=== PATIENT | female | born 1945 | race Caucasian/White ===

== ENCOUNTER 2016-10-24 13:03 | Outpatient (CLI) | payer MEDICARE, OTHER | END 2016-10-24 13:04 | disposition home or self-care (01) | DX: I26.99 Other pulmonary embolism without acute cor pulmonale (principal) ==

== ENCOUNTER 2016-11-21 09:41 | Outpatient (CLI) | payer MEDICARE, OTHER | END 2016-11-21 09:42 | disposition home or self-care (01) | DX: I26.99 Other pulmonary embolism without acute cor pulmonale (principal) ==

== ENCOUNTER 2017-01-17 10:37 | Outpatient (CLI) | payer MEDICARE, OTHER | END 2017-01-17 10:38 | disposition home or self-care (01) | DX: I26.99 Other pulmonary embolism without acute cor pulmonale (principal) ==

== ENCOUNTER 2017-02-14 08:00 | Outpatient (CLI) | payer MEDICARE, OTHER | END 2017-02-14 08:01 | disposition home or self-care (01) | DX: I26.99 Other pulmonary embolism without acute cor pulmonale (principal) ==

== ENCOUNTER 2017-03-14 13:48 | Outpatient (CLI) | payer MEDICARE, OTHER | END 2017-03-14 13:49 | disposition home or self-care (01) | LOC: LAB.F 13:48 | PROVIDERS: ATTEND Internal Medicine | DX: I26.99 Other pulmonary embolism without acute cor pulmonale (principal) | CPT/HCPCS: 85610 ==

== ENCOUNTER 2017-04-17 09:50 | Outpatient (CLI) | payer MEDICARE, OTHER | END 2017-04-17 09:51 | disposition home or self-care (01) | LOC: LAB.F 09:50 | PROVIDERS: ATTEND Internal Medicine | DX: I26.99 Other pulmonary embolism without acute cor pulmonale (principal) | CPT/HCPCS: 85610 ==

== ENCOUNTER 2017-05-16 12:44 | Outpatient (CLI) | payer MEDICARE, OTHER | END 2017-05-16 12:45 | disposition home or self-care (01) | LOC: LAB.F 12:44 | PROVIDERS: ATTEND Internal Medicine | DX: I26.99 Other pulmonary embolism without acute cor pulmonale (principal) | CPT/HCPCS: 85610 ==

== ENCOUNTER 2017-06-13 13:44 | Outpatient (CLI) | payer MEDICARE, OTHER | END 2017-06-13 13:45 | disposition home or self-care (01) | LOC: LAB.F 13:44 | PROVIDERS: ATTEND Internal Medicine | DX: I26.99 Other pulmonary embolism without acute cor pulmonale (principal) | CPT/HCPCS: 85610 ==

== ENCOUNTER 2017-07-11 13:33 | Outpatient (CLI) | payer MEDICARE, OTHER | END 2017-07-11 13:34 | disposition home or self-care (01) | LOC: LAB.F 13:33 | PROVIDERS: ATTEND Internal Medicine | DX: K50.10 Crohn's disease of large intestine without complications (principal); R19.7 Diarrhea, unspecified; I26.99 Other pulmonary embolism without acute cor pulmonale | CPT/HCPCS: 85610 ==

== ENCOUNTER 2017-07-19 08:00 | Outpatient (CLI) | payer MEDICARE, OTHER | END 2017-07-19 08:01 | LOC: LAB.R 08:00 | PROVIDERS: ATTEND Internal Medicine Gastroenterology | DX: K50.10 Crohn's disease of large intestine without complications (principal); R19.7 Diarrhea, unspecified | CPT/HCPCS: 83630; 83993; 87045; 87046; 87177; 87209; 87493 ==

== ENCOUNTER 2017-10-24 14:13 | Outpatient (CLI) | payer MEDICARE, OTHER | END 2017-10-24 14:14 | disposition home or self-care (01) | LOC: LAB.F 14:13 | PROVIDERS: ATTEND Internal Medicine | DX: I26.99 Other pulmonary embolism without acute cor pulmonale (principal) | CPT/HCPCS: 85610 ==

== ENCOUNTER 2017-11-27 13:26 | Outpatient (CLI) | payer MEDICARE, OTHER | END 2017-11-27 13:27 | disposition home or self-care (01) | LOC: LAB.F 13:26 | PROVIDERS: ATTEND Internal Medicine | DX: I26.99 Other pulmonary embolism without acute cor pulmonale (principal) | CPT/HCPCS: 85610 ==

== ENCOUNTER 2017-12-28 15:55 | Outpatient (CLI) | payer MEDICARE, OTHER | END 2017-12-28 15:56 | disposition home or self-care (01) | LOC: LAB.F 15:55 | PROVIDERS: ATTEND Internal Medicine | DX: I26.99 Other pulmonary embolism without acute cor pulmonale (principal) | CPT/HCPCS: 85610 ==

== ENCOUNTER 2018-01-28 11:19 | Outpatient (CLI) | payer MEDICARE, OTHER | END 2018-01-28 11:20 | disposition home or self-care (01) | LOC: LAB.F 11:19 | PROVIDERS: ATTEND Internal Medicine | DX: I26.99 Other pulmonary embolism without acute cor pulmonale (principal) | CPT/HCPCS: 85610 ==

== ENCOUNTER 2018-02-12 12:09 | Outpatient (CLI) | payer MEDICARE, OTHER | END 2018-02-12 12:10 | disposition critical access hospital (66) | LOC: EMS 12:09 | PROVIDERS: ATTEND Surgery | DX: R42 Dizziness and giddiness (principal); M54.9 Dorsalgia, unspecified; R10.9 Unspecified abdominal pain; R53.1 Weakness | CPT/HCPCS: A0425; A0427 ==

== ENCOUNTER 2018-02-12 12:41 | Inpatient (IN) | payer MEDICARE, OTHER ==
[2018-02-12] MEDS ORDERED: SODIUM CHLORIDE 0.9% 2,000 ML IV ONE (13:01)
[2018-02-12] MEDS ORDERED: ONDANSETRON 4 MG/2 ML VIAL IVP STA (13:01)
--- NOTE | 2018-02-12 13:06 | ED Physician Documentation ---
History of Present Illness - Stated complaint Stated Complaint: DIZZY - Chief complaint Chief Complaint: Abd Pain - Additonal information Additional information: hx from pt 72 female pmhx CAD CHF s/p raven and stents developed severe abd pain radiating to her back last night at 11 PM subj fever very weak and felt faint with standing did not fall no CP no SOA no cough no NVD no new meds etc arrives hypotensive Review of Systems Constitutional: reports: Fever (subj) Throat: denies: Sore throat Cardiac: denies: Chest pain / pressure Respiratory: denies: Dyspnea, Cough GI: reports: Abdominal Pain. denies: Nausea, Vomiting, Diarrhea : denies: Dysuria Musculoskeletal: reports: Back pain Neurologic: reports: Generalized weakness, Near syncope Endocrine: reports: Easy bruising / bleeding (coumadin) Immunocompromised: denies: Immunocompromised PD PAST MEDICAL HISTORY - Past Medical History Cardiovascular: Hypertension, High cholesterol, Pulmonary embolism Respiratory: Sleep apnea, CPAP use GI: Crohn's disease Psych: Anxiety - Past Surgical History Past Surgical History: Yes General: Cholecystectomy Cardiovascular: Coronary stent - Present Medications Home Medications: Ambulatory Orders Medication Instructions Recorded Confirmed Aspirin [Aspir 81] 81 mg PO DAILY 04/02/15 02/12/18 Atorvastatin Calcium [Lipitor] 80 mg PO DAILY 04/02/15 02/12/18 Paroxetine HCl [Paxil] 30 mg PO DAILY 04/02/15 02/12/18 Temazepam [Restoril] 15 - 30 mg PO HS PRN 04/02/15 02/12/18 Triamterene/Hydrochlorothiazid 1 tab PO DAILY 04/02/15 02/12/18 [Triamterene-Hctz 37.5-25 mg Cp] Warfarin Sodium [Coumadin] 4 - 6 mg PO DAILY 04/02/15 02/12/18 Furosemide [Furosemide] 40 mg PO Q48H 02/12/18 02/12/18 Melatonin 15 mg PO QPM 02/12/18 02/12/18 Metoprolol Succinate [Toprol Xl] 50 mg PO DAILY 02/12/18 02/12/18 Nitroglycerin [Nitrostat] 0.4 mg SL Q5MIN PRN 02/12/18 02/12/18 Nystatin/Triamcin 1 applic TOP DAILY PRN 02/12/18 02/12/18 [Nystatin-Triamcinolone Cream] Potassium Chloride 20 meq PO DAILY 02/12/18 02/12/18 Ropinirole HCl [Ropinirole HCl] 1 mg PO QPM 02/12/18 02/12/18 - Allergies Allergies/Adverse Reactions: Allergies Allergy/AdvReac Type Severity Reaction Status Date / Time adhesive Allergy Unknown Verified 04/02/15 09:17 Sulfa (Sulfonamide Allergy Rash Verified 04/02/15 09:17 Antibiotics) tetracycline Allergy Unknown Verified 04/02/15 09:17 - Social History Does the pt smoke?: No Smoking Status: Never smoker PD ED PE NORMAL - Vitals Vital signs reviewed: Yes - Neck Neck: Supple, no meningeal sign - Cardiac Cardiac: RRR - Respiratory Respiratory: No respiratory distress, Clear bilaterally - Abdomen Abdomen: Soft, Non tender, Other (no pulsatile mass appreciated but BMI is 44) - Derm Derm: Normal color - Extremities Extremities: No edema, No calf tenderness / cord, Other (+ pulses) - Neuro Neuro: Alert and oriented X 3 Results - Vitals Vitals: Vital Signs - 24 hr 02/12/18 02/12/18 02/12/18 12:47 13:40 14:06 Temperature 36.8 C Heart Rate 83 77 93 Respiratory 14 29 H 34 H Rate Blood Pressure 76/35 L 62/57 L 84/41 L O2 Saturation 100 92 94 02/12/18 02/12/18 02/12/18 14:17 14:28 14:36 Temperature Heart Rate 89 83 86 Respiratory 22 33 H 29 H Rate Blood Pressure 74/51 L 72/31 L 104/51 L O2 Saturation 96 100 97 02/12/18 02/12/18 02/12/18 15:07 15:17 15:25 Temperature 37.8 C H Heart Rate 86 86 86 Respiratory 26 H 27 H 22 Rate Blood Pressure 100/37 L 119/50 L 127/50 L O2 Saturation 95 95 96 Oxygen O2 Source Nasal cannula - EKG (time done) 1246 Rate: Rate (enter#) Rhythm: NSR Ischemia: Q waves (inf), Non specific changes (flat T waves diffusely) - Labs Labs: Laboratory Tests 02/12/18 02/12/18 02/12/18 13:00 13:03 13:03 WBC 22.3 H RBC 4.12 L Hgb 13.2 Hct 39.9 MCV 96.9 MCH 32.1 H MCHC 33.1 RDW 14.0 Plt Count 236 MPV 8.8 Neut # 19.8 H Lymph # 1.2 L Aurora # 1.2 H Eos # 0.0 Baso # 0.1 Absolute Nucleated RBC 0.00 Nucleated RBC % 0.0 Manual Slide Review Indicated RBC Morph Micro Appear 2+ ANISOCYTOSIS PT 34.0 H INR 3.1 H APTT 33.6 H Sodium 137 Potassium 2.9 L Chloride 99 L Carbon Dioxide 26 Anion Gap 12.0 BUN 29 H Creatinine 1.4 H Estimated GFR (MDRD) 37 L Glucose 97 Lactic Acid Calcium 8.8 Total Bilirubin 2.5 H AST 33 ALT 22 Alkaline Phosphatase 74 Troponin I Total Protein 7.1 Albumin 3.8 Globulin 3.3 Albumin/Globulin Ratio 1.2 Lipase 23 Urine Color Urine Clarity Urine pH Ur Specific Ramer Urine Protein Urine Glucose (UA) Urine Ketones Urine Occult Blood Urine Nitrite Urine Bilirubin Urine Urobilinogen Ur Leukocyte Esterase Urine RBC Urine WBC Ur Squamous Epith Cells Urine Bacteria Urine Casts Ur Microscopic Review Urine Culture Comments 02/12/18 02/12/18 02/12/18 13:03 14:30 15:00 WBC RBC Hgb Hct MCV MCH MCHC RDW Plt Count MPV Neut # Lymph # Aurora # Eos # Baso # Absolute Nucleated RBC Nucleated RBC % Manual Slide Review RBC Morph Micro Appear PT INR APTT Sodium Potassium Chloride Carbon Dioxide Anion Gap BUN Creatinine Estimated GFR (MDRD) Glucose Lactic Acid 2.7 H Calcium Total Bilirubin AST ALT Alkaline Phosphatase Troponin I < 0.04 Total Protein Albumin Globulin Albumin/Globulin Ratio Lipase Urine Color YELLOW Urine Clarity CLEAR Urine pH 6.0 Ur Specific Ramer <=1.005 Urine Protein TRACE Urine Glucose (UA) NEGATIVE Urine Ketones NEGATIVE Urine Occult Blood MODERATE H Urine Nitrite NEGATIVE Urine Bilirubin NEGATIVE Urine Urobilinogen 0.2 (NORMAL) Ur Leukocyte Esterase NEGATIVE Urine RBC 6-10 H Urine WBC 0-3 Ur Squamous Epith Cells RARE Squamous Urine Bacteria Rare Urine Casts 3-5 Hyaline Casts Ur Microscopic Review INDICATED Urine Culture Comments NOT INDICATED - Rads (name of study) CXR 1 Radiology: See rad report (R IJ deep, no pneumo) CXR 2 Radiology: See rad report (R IJ in lower SVC, no pneumo) CTA cest abd pelvis Radiology: See rad report (diffuse vascualr sx with narrowing or numerous artieries but no bernadette ischemia, no AAA, no dissection, no appy, nl solid organs - per d/w and written rad report) PD MEDICAL DECISION MAKING - ED course ED course: bedside sono unable to visualize aorta CTA chest abnd pelvis show no cause for pain and hypotension suspect sepsis - elev WBC and lactate sx since last night - EKG non specific and trop neg given 2 L NS and empiric zosyn flagyl to cover abd pathogens continued low BP R IJ placed by anesthesia and norepi started with improved BP K repleted source remains unclear - no surgical issue identified on CTs - spoke to hospitalist Dr Castillo who will admit to ICU Departure - Departure Disposition: 66 [facility] DC/Xfer Clinical Impression: Hypokalemia Sepsis Qualifiers: Sepsis type: sepsis due to unspecified organism Qualified Code(s): A41.9 - Sepsis, unspecified organism Abdominal pain Qualifiers: Abdominal location: unspecified location Qualified Code(s): R10.9 - Unspecified abdominal pain Back pain Qualifiers: Back pain location: low back pain Chronicity: acute Back pain laterality: unspecified Sciatica presence: without sciatica Qualified Code(s): M54.5 - Low back pain Condition: Serious Discharge Date/Time: 02/12/18 16:25
[2018-02-12] MEDS ORDERED: IOPAMIDOL-300 100 ML VIAL ONE (13:13)
[2018-02-12 13:20] LABS: BASOPHILS # (AUTO) 0.1 10^3/uL (0.0-0.1); BASOPHILS % (AUTO) 0.4 %; HGB - HEMOGLOBIN 13.2 g/dL (12.0-16.0); LYMPHOCYTES # (AUTO) 1.2 10^3/uL (1.5-3.5); LYMPHOCYTES % (AUTO) 5.3 %; MEAN CORPUSCULAR HEMOGLOBIN 32.1 pg (27.0-31.0); MEAN CORPUSCULAR HGB CONC 33.1 g/dL (32.0-36.0); MEAN CORPUSCULAR VOLUME 96.9 fL (81.0-99.0); MEAN PLATELET VOLUME 8.8 fL (7.9-10.8); MONOCYTES # (AUTO) 1.2 10^3/uL (0.0-1.0); MONOCYTES % (AUTO) 5.5 %; NEUTROPHILS # (AUTO) 19.8 10^3/uL (1.5-6.6); NEUTROPHILS % (AUTO) 88.8 %; PLT - PLATELET COUNT 236 10^3/uL (130-450); RED BLOOD COUNT 4.12 10^6/uL (4.20-5.40); WHITE BLOOD COUNT 22.3 x10^3/uL (4.8-10.8)
[2018-02-12 13:28] LABS: INR 3.1 (0.8-1.2)
[2018-02-12 13:31] LABS: ALBUMIN 3.8 g/dL (3.2-5.5); ALBUMIN/GLOBULIN RATIO 1.2 (1.0-2.2); BILIRUBIN,TOTAL 2.5 mg/dL (0.2-1.0); CALCIUM 8.8 mg/dL (8.5-10.3); CREATININE 1.4 mg/dL (0.4-1.0); TOTAL PROTEIN 7.1 g/dL (6.7-8.2)
[2018-02-12] MEDS: MORPHINE 2 MG/ML SYRINGE IVP STA ×2 (13:36→14:01)
[2018-02-12] MEDS ORDERED: PIPERACILLIN/TAZOBACTAM 3.375 GM in SODIUM CHLORIDE 0.9% MINIBAG 100 ML IV STA (13:41)
[2018-02-12] MEDS ORDERED: metroNIDAZOLE 500 MG/100 ML 500 MG/100 ML BAG IV ONE (13:42)
--- NOTE | 2018-02-12 14:06 | CT Preliminary Report ---
Exam: CT CHEST ANGIO (AORTA) IMPRESSION: 1. Mild cardiomegaly. 2. Greater than 50% diameter narrowing origins of left subclavian and celiac arteries. 3. Otherwise, unremarkable exam. [facility] SITE ID: [id number]
[2018-02-12 14:09] LABS: RBC MORPHOLOGY (MULTIPLE) 2+ ANISOCYTOSIS (NORMAL)
--- NOTE | 2018-02-12 14:16 | CT Report ---
EXAM: CT ANGIOGRAM CHEST, ABDOMEN AND PELVIS EXAM DATE: 02/12/2018 01:30 PM. CLINICAL HISTORY: Chest pain radiating to the back. Hypotension. COMPARISONS: None. TECHNIQUE: Routine axial helical CT angiographic imaging was performed through the chest, abdomen, and pelvis. I V Contrast: ISOVUE 300,100 mL. Reconstructions: Coronal, sagittal, and 3D MIP reconstructions of the aorta. In accordance with CT protocol optimization, one or more of the following dose reduction techniques w ere utilized for this exam: automated exposure control, adjustment of mA and/or KV based on patient s ize, or use of iterative reconstructive technique. FINDINGS: Vascular Structures: 30% narrowing origin brachiocephalic artery. 70% diameter narrowing origin left subclavian artery. 90% diameter narrowing origin celiac artery. 40% diameter narrowing origin superior mesenteric artery. No aneurysm, dissection, nor other significant atherosclerotic disease of the thoracic aorta, abdomin al aorta, or iliac arteries. The visualized pulmonary, mesenteric, and solid organ vascular structure s are also within normal limits. Grossly, no pulmonary emboli. Lungs/Pleura: No consolidation, nodules, or edema. No effusions or pneumothorax. Mediastinum: Mild cardiomegaly. No significant adenopathy. Abdominal Organs: Cholecystectomy. No biliary duct dilatation. Fatty liver. The spleen, pancreas, adrenal glands, and kidneys are normal in size and demonstrate no masses or abnormal enhancement. Peritoneal Cavity: Normal. No free fluid, free air, or acute inflammatory process. Appendix not visualized but no inflammatory changes adjacent to the cecum. Pelvic Organs: Normal. The bladder and visualized pelvic organs are within normal limits. Bones: Old [id number] wedging throughout the kyphotic thoracic spine with multilevel degenerati ve disk disease. Extensive diffuse idiopathic skeletal hyperostosis thoracic spine as well. No acute trabecular or cortical disruption. No significant abnormality. Other: None. IMPRESSION: 1. Mild cardiomegaly. 2. Greater than 50% diameter narrowing origins of left subclavian and celiac arteries. 3. Otherwise, unremarkable exam. [facility] Referring Provider Line: [phone] SITE ID: [id number]
--- NOTE | 2018-02-12 14:30 | CT Preliminary Report ---
Exam: CT ABDOMEN/PELVIS ANGIO Please see combined report. SITE ID: [id number]
--- NOTE | 2018-02-12 15:10 | XRAY Report ---
EXAM: CHEST RADIOGRAPHY EXAM DATE: 02/12/2018 02:53 PM. CLINICAL HISTORY: Line placement. COMPARISON: 04/02/2015. TECHNIQUE: 1 view. FINDINGS: Lungs/Pleura: Diffuse and subtle prominence. No consolidation, effusion, or pneumothorax. Mediastinum: Mild cardiomegaly. Diffuse vascular fullness. Supine patient. Other: Right central line tip in atrium or IVC about 8.4 cm below level of marco a. IMPRESSION: Right central line tip in atrium or IVC. [facility] Referring Provider Line: [phone] SITE ID: [id number]
--- NOTE | 2018-02-12 15:11 | XRAY Report ---
EXAM: CHEST RADIOGRAPHY EXAM DATE: 02/12/2018 02:57 PM. CLINICAL HISTORY: Line placement. COMPARISON: An earlier study of this same date. TECHNIQUE: 1 view. FINDINGS: Lungs/Pleura: Diffuse interstitial prominence. No localized infiltrate, consolidation, effusion, or p neumothorax. Mediastinum: Mild to moderate cardiomegaly, probably unchanged. Diffuse vascular fullness. Supine pat ient. Other: Right central line has been pulled back and its tip is in the lower SVC about 2.1 cm below lev el of marco a. IMPRESSION: Central line tip in lower SVC. [facility] Referring Provider Line: [phone] SITE ID: [id number]
[2018-02-12] MEDS ORDERED: IOPAMIDOL-300 100 ML VIAL IVP ONE (15:16)
[2018-02-12 15:23] LABS: BILIRUBIN,URINE NEGATIVE (NEGATIVE); GLUCOSE, URINE (UA) NEGATIVE (NEGATIVE); KETONES,URINE (UA) NEGATIVE (NEGATIVE); LEUKOCYTE ESTERASE, URINE NEGATIVE (NEGATIVE); NITRITE,URINE NEGATIVE (NEGATIVE); OCCULT BLOOD,URINE MODERATE (NEGATIVE); PROTEIN,URINE TRACE mg/dL (NEGATIVE); UROBILINOGEN,URINE 0.2 (NORMAL) E.U./dL (NORMAL)
[2018-02-12 15:24] LABS: CLARITY,URINE CLEAR (CLEAR)
[2018-02-12 15:36] LABS: BACTERIA,URINE Rare /HPF (None Seen); CASTS, URINE 3-5 Hyaline Casts /LPF; SQUAMOUS EPITHELIAL CELL,UR RARE Squamous (<= Few)
[2018-02-12] MEDS ORDERED: oxyCODONE 5 MG TABLET PO PRN (15:42)
[2018-02-12] MEDS ORDERED: ONDANSETRON ODT 4 MG TABLET TL PRN (15:42)
[2018-02-12] MEDS ORDERED: ONDANSETRON 4 MG/2 ML VIAL IVP PRN (15:42)
[2018-02-12] MEDS ORDERED: MORPHINE 2 MG/ML SYRINGE IVP PRN (15:42)
[2018-02-12] MEDS ORDERED: POTASSIUM CHLOR 20 MEQ/100 ML 20 MEQ/100 ML BAG IV ONE (16:11)
[2018-02-12] MEDS: SODIUM CHLORIDE 0.9% 1,000 ML IV SCH (16:44)
[2018-02-12] MEDS: POTASSIUM CHLOR 20 MEQ/100 ML 20 MEQ/100 ML BAG IV SCH ×4 (17:03→19:59)
[2018-02-12] MEDS: SODIUM CHLORIDE FLUSH 0.9% 10 ML SYRINGE IVP SCH (17:04)
[2018-02-12] MEDS: ACETAMINOPHEN 325 MG TABLET PO PRN (17:54)
[2018-02-12] MEDS: PANTOPRAZOLE 40 MG VIAL IVP SCH (18:05)
[2018-02-12] MEDS: SODIUM CHLORIDE FLUSH 0.9% 10 ML SYRINGE IVP PRN ×3 (18:07→22:15)
[2018-02-12] MEDS: PIPERACILLIN/TAZOBACTAM 3.375 GM in SODIUM CHLORIDE 0.9% MINIBAG 100 ML IV SCH (20:29)
[2018-02-12] MEDS: rOPINIRole 1 MG TABLET PO SCH (20:29)
[2018-02-12] MEDS: metroNIDAZOLE 500 MG/100 ML 500 MG/100 ML BAG IV SCH (21:27)
[2018-02-12] MEDS: TEMAZEPAM 15 MG CAPSULE PO PRN (21:52)
[2018-02-12] MEDS ORDERED: ATORVASTATIN 40 MG TABLET ONE (21:55)
[2018-02-13] MEDS: ACETAMINOPHEN 325 MG TABLET PO PRN ×2 (02:55→07:29)
[2018-02-13] MEDS: SODIUM CHLORIDE FLUSH 0.9% 10 ML SYRINGE IVP SCH ×4 (02:55→23:00)
--- NOTE | 2018-02-13 02:57 | HISTORY & PHYSICAL EXAMINATION ---
DATE OF SERVICE: 02/12/2018 Physician: Naye Castillo MD PRIMARY CARE PROVIDER: Dr Kody Garcia, [facility]. ARTIST WOODBLOCK: Milton Mancuso MD, [facility]. ADMITTING PROVIDER: Naye Castillo MD. CHIEF COMPLAINT: Abrupt onset waxing and waning agonizing mid abdominal pain for a few hours. HISTORY OF PRESENT ILLNESS: Ms. Miranda is a morbidly obese 72-year-old female who has complications of heart disease, obstructive sleep apnea, and quiescent Crohn's colitis. She is seen regularly by all of her providers and is up to date with her exams. She describes herself as independent in that she is still able to drive, pay bills, clean her house, walk her dogs, etc. Her has difficulty getting around because of his illnesses and she considers herself his care provider. She was staying at a friend's house last night dog sitting. She had gone to bed after eating dinner around 6 o'clock in the evening. Bedtime is around 11:30 p.m. After lying down, she was overcome by a sudden onset of severe agonizing colicky abdominal pain that was diffuse, but located mainly in the mid abdomen. It radiated through to her back. She said she has never had anything like that and it was agonizingly painful. She says that she even felt like she was losing her mind with it and was not thinking very clearly. She tried to speak to her about it. The house she stays at has a terrible land line, and she also cannot get cellphone service. After speaking to her , he told her to call 911. She collapsed back in bed, and for some reason just could not bring herself to call 911. She knew she needed to do it, but just could not make herself get out of bed to make it happen. She denied fever or chills. She had no antecedent nausea. No antecedent illness. She did have incontinence of loose stool in the bed of a small amount. She denies urgency, frequency, dysuria. She denies chest pain, palpitations, shortness of breath. What she does have accompanying this is a massive headache. The same thing that she was getting in her mid abdomen is starting to happen in her head later on in the morning and this afternoon. Her called 911 and she was brought to our emergency room. She was hypotensive, afebrile. Blood pressure was down to 62/57 in the emergency room. Heart rate was in the 70s-90s and she was oxygenating well. The abdomen was nontender and there was no pulsatile mass, but her BMI was 44. Dr. Danielle was concerned about an aneurysm and asked that she have a CT angiogram of the chest and abdomen. While she does have 50% stenosis to some of her greater vessels, there is no ischemic colitis, rupture of the aorta. She does have a low potassium of 2.9 with a lactic acid of 2.7 and a total bilirubin of 2.5. Troponin is less than 0.04. White cell count is elevated at 22,000. Resuscitation in the emergency room consisted of a central line being placed with IV fluids of 0.9 normal saline, Zosyn and Flagyl for empiric abdominal catastrophe, and morphine for pain. She was also started on Levophed. With Levophed, the blood pressure has come up to 100/[address] Danielle. She has been transferred to the ICU and blood pressure is now 125/ 47. The history is lucid. Patient is still quite awake, alert and able to provide all the information above. PAST MEDICAL HISTORY 1. Coronary artery disease with two stents. 2. Ischemic cardiomyopathy with reduced ejection fraction and a diagnosis of "congestive heart failure," but the patient is unable to tell me if it is systolic or diastolic and what the ejection fraction is. 3. Hypertension. 4. Obstructive sleep apnea on CPAP at home with restless leg syndrome. 5. Depression with anxiety. 6. Morbid obesity. 7. Osteoarthritis with bilateral knee replacements. 8. G1, P1. 9. History of both cataracts removed with intraocular lens implant. 10. High cholesterol. 11. Pulmonary embolism. 12. Quiescent Crohn's disease. She is seen by her industrial boilermaker regularly and has not had to have treatment in quite some time. She does recall having a history of a duodenal Crohn's ulcer. ALLERGIES 1. SHE IS ALLERGIC TO ADHESIVE TAPE. 2. SULFA. 3. TETRACYCLINE. MEDICATIONS 1. Aspirin 81 mg daily. 2. Lipitor 80 mg daily. 3. Paxil 30 mg daily. 4. Restoril 15-30 mg p.o. at bedtime p.r.n. 5. Triamterene with hydrochlorothiazide 37.5/25 mg daily. 6. Coumadin 4 mg on even days, 6 mg on odd days. 7. Lasix 40 mg every 48 hours. With her new diagnosis of congestive heart failure, she only takes it three to four times a week. 8. Melatonin 15 mg q.p.m. 9. Metoprolol XL 50 mg daily. 10. Sublingual nitroglycerin p.r.n. 11. Nystatin applied to Yesenia of skin daily p.r.n. 12. Potassium 20 mEq daily. 13. Ropinirole 1 mg p.o. q.p.m. SOCIAL HISTORY: She was born in [place], [place]. From there, she met and her . She is a computer support specialist. They moved to [place], [place] to [place], then [place]. Somewhere in the , her mother and [id number] moved to the [place] and they began visiting them here. When it was time to retire for her as a computer support specialist and for her into computer sales, they settled on the [place] about 30 years ago. She never smoked. She rarely drinks. Again, she is completely independent with activities of daily living. CODE STATUS: DO NOT RESUSCITATE. She says that she does have advanced directives at home, but did not bring them with her. Description of her advanced directives is in general related to survivability. She would like all things done including surgeries, ICU, intubation, if it is a treatable medical problem. If after all of our efforts to keep her alive, to reverse the illness that she is succumbing to, and she is still not going to make it, to let her go. Only after all measures have been done, including pressors, intubation, does she wants to invoke DO NOT RESUSCITATE without chest compressions. FAMILY HISTORY: She never really knew her mom very well. Her mom abandon them when she was a very little girl, but she did a background search on her mother and realized that her mother had triple bypass surgery in her 50s, and eventually of coronary artery disease at age 76. Dad at age 33 in an airplane accident. She has one half brother, one half sister. Each half sibling is from either parent. Both siblings have had heart disease with heart attacks. Son is healthy and has no major medical illnesses. REVIEW OF SYSTEMS GENERAL: This patient is morbidly obese and has had no recent weight changes, sweats, or dwindling. ENT: Denies glaucoma. Blurred vision. Currently having a massive headache with our resuscitative efforts in the emergency room. Mouth is very, very dry, but no dysphagia. No facial droop. No deafness. PULMONARY: Has a new tickle. She says that she always gets a little bit of a tickle in her throat from her medicines and her disease. She will clear her throat and she will be fine. Lately, she has developed a tickle deeper in the substernal area, more in her bronchial tubes that is different. The cough is nonproductive. There is no shortness of breath accompanying it. No new dyspnea on exertion. No wheezing. CARDIAC: No new edema, no new orthopnea. Her ability to ambulate and do what she does in her daily life is about the same as it always is with no sharp deterioration in status. Every once in a while she gets palpitations. Every once while she gets substernal chest pain for which is easily relieved by sublingual nitroglycerin. It has been awhile since she has had to do that. GASTROINTESTINAL: As above. GENITOURINARY: Negative for urgency, frequency, dysuria, hematuria or flank pain. JOINTS: Stiff. Difficult to get around at times. Mainly in her hips because she has bursitis. Her two new knees and hip replacements worked really well. No new joint effusions, no trauma. No redness or heat. SKIN: Easy bruising with Coumadin. She just has to brush against a counter and she will have spontaneous bruising of her abdominal wall, arms, etc., but no rashes, no new moles. PSYCHIATRIC: Depression and anxiety, but no suicidal ideation. 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 No focal deficits. PHYSICAL EXAMINATION: I have seen the patient after she was transferred to the ICU from the ER. has still not arrived. VITAL SIGNS: Temperature is 37.5, pulse is 85, blood pressure 122/51, respirations 25 and unlabored. She is 100%, saturating on 2 liters nasal cannula. GENERAL: She is a pleasant, morbidly obese, white female, able to lie completely flat on the bedside, wearing glasses, nasal cannula, and a nasal tone to voice in no acute distress. She says that her abdominal pain is "a ghost of what it was." ENT: Glasses. Sclerae nonicteric. Lips are so dry that they stick to her teeth. Tongue midline. Oral mucosa dry. Gag intact. No facial asymmetry. Voice is a little hoarse. NECK: Supple. No JVD, goiter or bruits. LUNGS: Lungs have diminished breath sounds at the bases. No increased respiratory effort. No crackles, rhonchi or wheezing. ABDOMEN: With a huge abdominal pannus. Scattered bruising throughout the abdominal pannus from where she says that she spontaneously bruises. The right lower quadrant has pinpoint pain about 6 fingerbreadths above the inguinal fold. I can feel a stretch jd there , but no reducible hernia. No rebound or guarding. In the 2 minutes that I listened to her abdomen, I do not hear bowel sounds, but there is no distention, no rebound, no guarding, other than that one pinpoint pain in the right lower quadrant. There is no umbilical hernia. SKIN: She has resolving Yesenia underneath the pannus and intertriginous folds. EXTREMITIES: Show onychomycosis of the toenails. Trace edema of the ankles/ malleoli. No clubbing or cyanosis. Both feet have superficial varicosities and intact pulses. NEUROLOGIC: The patient is alert and oriented to person, place and time. Completely lucid historian and able to give me an entire history quite well in spite of her discomfort, being in the ICU and on Levophed. MUSCULOSKELETAL: On strength testing, this woman is able to use her arm spontaneously to reposition herself. Scratch her nose with one hand. Reposition the sheets with both hands. She lifts up her legs off the bed for me. Plantar and dorsiflexion strength testing of the feet is normal. LABORATORY DATA: White cell count is 22.3. Hemoglobin 13.2, hematocrit 39.9, platelets 236. INR is 3.1. Sodium 137, potassium 2.9, BUN 29, creatinine 1.4, random glucose 97, lactic acid 2.7, total bilirubin 2.5. Troponin 0.04. Urinalysis had moderate occult blood , 6-10 red cells, 0-3 white cells. Abdomen and pelvis CT angiogram, all without any aneurysm, dissection, or significant arteriosclerotic disease of the thoracic aorta, abdominal aorta or iliac arteries. Her visualized pulmonary, mesenteric, and solid organ vascular structures are within normal limits. She does not have any PEs. There is no biliary duct dilatation. Fatty liver is present. She does not have any free air, or acute inflammatory process. She has mild to moderate wedging throughout the kyphotic thoracic spine with multilevel degenerative disk disease. She has greater than 50% diameter narrowing of the origin of the left subclavian and celiac arteries. Chest x-ray with a right central line tip in atrium or IVC, mild cardiomegaly, but no pneumonia or effusions. ASSESSMENT AND PLAN: 1. Acute generalized abdominal pain. Renae points in her history are that it took her quite some time to try and figure out what position to make herself comfortable. She had no pain upon transferring from the [facility] to her bed in ICU. Hence, no peritoneal inflammation. The pain is waxing and waning and very colicky and she describes it as almost riding a wave of biliary colic or childbirth. As such, my differential diagnosis includes visceral pain from dilation. CT angiogram already shows no aneurysm rupture, bowel ischemia. It also shows that she has no common bile duct dilatation, but she does have elevated bilirubin. The other possibility besides common bile duct stone and biliary colic is a kidney stone. There is no localizing, but she does have blood in her urine. I will ask radiology if I can review her films with them to see if angiography would help me without having to repeat studies. I will also consider an MRCP. A final thought is duodenal rupture because of her history of Crohn's with duodenal disease. But she has no free air and no epigastric pain on exam. Plan a. IV fluid resuscitation. b. Attestation of the patient will be admitted for less than 96 hours. c. IV pain medicine with morphine. d. Empiric therapy for number two. e. NPO except for ice chips and meds. f. Proton pump inhibitor IV. 2. Sepsis with hypotension. She has hypotension, fever, elevated WBC, and abdominal pain. At this point, I am not seeing any perforated viscus, no UTI, nothing indicating the source of sepsis and hypertension other than she has abdominal pain. We will use empiric antibiotic therapy of the abdomen to include Zosyn and Flagyl. She is responding to the Levophed and IV fluids. Her CT does not show obstruction of ureters, there is no bowel inflammatory changes, CBD is only ~3 mm. If her exam changes and a surgical source is found, will consult General Surgery then. 3. Obstructive sleep apnea. I will write order to have the patient use own CPAP mask. 4. Coronary artery disease history. Troponins are negative. We will contact her cardiology office to see if we can get old records to at least establish her anatomy. Also get her old echocardiograms to see what her ejection fraction is. We will resume oral medications tomorrow. At this time, keep her n.p.o. except for ice chips. 5. History of pulmonary embolus. Current CT angiogram shows no PE. INR is mildly supratherapeutic. We will hold Coumadin until INR drops below 3. 6. DO NOT RESUSCITATE status as described above. 7. Deep venous thrombosis prophylaxis will be continued monitoring of Coumadin and her INR to keep her between 2 and 3. TD: 02/12/2018 17:52 RAVI
[2018-02-13] MEDS: PIPERACILLIN/TAZOBACTAM 3.375 GM in SODIUM CHLORIDE 0.9% MINIBAG 100 ML IV SCH ×4 (02:59→20:52)
[2018-02-13] MEDS: SODIUM CHLORIDE 0.9% 1,000 ML IV SCH ×3 (04:49→18:12)
[2018-02-13 05:19] LABS: MEAN CORPUSCULAR VOLUME 97.9 fL (81.0-99.0)
[2018-02-13 05:27] LABS: BASOPHILS % (AUTO) 0.2 %; HGB - HEMOGLOBIN 11.8 g/dL (12.0-16.0); LYMPHOCYTES % (AUTO) 5.5 %; MEAN CORPUSCULAR HEMOGLOBIN 31.4 pg (27.0-31.0); MEAN CORPUSCULAR HGB CONC 32.1 g/dL (32.0-36.0); MEAN PLATELET VOLUME 8.5 fL (7.9-10.8); NEUTROPHILS % (AUTO) 89.3 %; PLT - PLATELET COUNT 223 10^3/uL (130-450); RED BLOOD COUNT 3.75 10^6/uL (4.20-5.40); RED CELL DISTRIBUTION WIDTH 14.8 % (12.0-15.0); WHITE BLOOD COUNT 26.6 x10^3/uL (4.8-10.8)
[2018-02-13 05:29] LABS: CREATININE 0.8 mg/dL (0.4-1.0); MAGNESIUM 2.1 mg/dL (1.7-2.8); PHOSPHORUS 3.8 mg/dL (2.5-4.6)
[2018-02-13 05:34] LABS: ABNORMAL LYMPHS % (MANUAL) 0 %
[2018-02-13 06:26] LABS: BAND NEUTROPHILS % (MANUAL) 15 %; LYMPHOCYTES # (MANUAL) 2.1 10^3/uL (1.5-3.5); LYMPHOCYTES % (MANUAL) 8 %; MONOCYTES # (MANUAL) 1.6 10^3/uL (0.0-1.0); NEUTROPHILS # (MANUAL) 22.9 10^3/uL (1.5-6.6); NEUTROPHILS % (MANUAL) 71 %
[2018-02-13] MEDS: metroNIDAZOLE 500 MG/100 ML 500 MG/100 ML BAG IV SCH ×3 (06:26→21:29)
[2018-02-13] MEDS: PANTOPRAZOLE 40 MG VIAL IVP SCH (06:26)
[2018-02-13 06:27] LABS: DIFFERENTIAL COMMENT MANUAL DIFFERENTIAL; PLATELET ESTIMATE, MANUAL NORMAL (130-450,000) (NORMAL); PLATELET MORPHOLOGY NORMAL APPEARANCE (NORMAL); RBC MORPHOLOGY (MULTIPLE) NORMAL APPEARANCE (NORMAL)
[2018-02-13] MEDS ORDERED: ATORVASTATIN 40 MG TABLET PO SCH (09:00)
--- NOTE | 2018-02-13 13:39 | PROVIDER PROGRESS NOTE ---
Subjective - Prog Note Date Prog Note Date: 02/13/18 Prog Note Time: 13:35 - Subjective Pt reports feeling: Improved Subjective: she has had almost no pain in her abd overnight. still with mild LLQ tingle. is now passing flatus. yesterday did not. Meds from [facility] reviewed: SCOTT and periodic limb movement disorder Basal cell ca Squamous Cell ca trigger finger OA hand and knees with arthroplasty both knees chelitis with TRUE test patch studies negative 11/06/08 CAD CHF w PEF. First episode 07/2017. 2-3 weeks of progressive weight gain, SOB and constant chest pressure. Seen in urgent care and lasix, K prescribed. Lost 10 lbs in 1 week. Seen 08/28/17 by Jamee. ECHO 08/2217 with mild Concentric LVH with normal systolic EF at 60%. Moderate diastolic dysfunction and left atrium is severely dilated. No wall motion abnormalities seen. Mild AR. Nml RV size and function with nml pulm pressures. Essential HTN Crohn Disease and she sees Dr. Rhodes from [facility]. HPL Unprovoked large Pulmonary emboli 03/31/15 and to be on lifelong coumadin. Generalized Anxiety disorder and depression Current Medications - Current Medications Current Medications: Active Medications Acetaminophen (Tylenol) 650 mg PO Q4HR PRN PRN Reason: Pain or Fever > 38C (100.4F) Last Admin: 02/13/18 07:29 Dose: 650 mg Atorvastatin Calcium (Lipitor) 80 mg PO QPM [facility] Sodium Chloride (Normal Saline 0.9%) 1,000 mls @ 100 mls/hr IV .Q10H [facility] Last Admin: 02/13/18 11:23 Dose: Not Given Metronidazole (Flagyl 500 Mg/100 Ml) 500 mg in 100 mls @ 100 mls/hr IV Q8HR [facility] Last Infusion: 02/13/18 07:29 Dose: Infused Piperacillin Sod/Tazobactam (Sod 3.375 gm/ Sodium Chloride) 100 mls @ 200 mls/ hr IV Q6H [facility] Last Infusion: 02/13/18 09:18 Dose: Infused Norepinephrine Bitartrate 8 mg (/ Dextrose) 250 mls @ 41.25 mls/hr IV .Q6H4M [facility]; 22 MCG/MIN PRN Reason: Protocol Last Titration: 02/13/18 12:55 Dose: 6 mcg/min, 11.25 mls/hr Morphine Sulfate (Morphine) 2 mg IVP Q2H PRN PRN Reason: Pain 8 to 10 Ondansetron HCl (Zofran Inj) 4 mg IVP Q6HR PRN PRN Reason: Nausea / Vomiting Ondansetron HCl (Zofran Odt) 4 mg TL Q6HR PRN PRN Reason: Nausea / Vomiting Oxycodone HCl (Roxicodone) 5 mg PO Q4HR PRN PRN Reason: Pain 5 to 7 Pantoprazole Sodium (Protonix) 40 mg IVP QDAC [facility] Last Admin: 02/13/18 06:26 Dose: 40 mg Ropinirole HCl (Requip) 1 mg PO QPM [facility] Last Admin: 02/12/18 20:29 Dose: 1 mg Sodium Chloride (Normal Saline Flush 0.9%) 10 ml IVP 0100,0900,1700 [facility] Last Admin: 02/13/18 08:47 Dose: 30 ml Sodium Chloride (Normal Saline Flush 0.9%) 10 ml IVP PRN PRN PRN Reason: NEEDED PER PROVIDER ORDERS Last Admin: 02/12/18 22:15 Dose: 30 ml Temazepam (Restoril) 15 - 30 mg PO HS PRN PRN Reason: Insomnia Last Admin: 02/12/18 21:52 Dose: 15 mg Aspirin [Aspir 81] 81 mg PO DAILY 04/02/15 Atorvastatin Calcium [Lipitor] 80 mg PO QPM 04/02/15 Paroxetine HCl [Paxil] 30 mg PO DAILY 04/02/15 Temazepam [Restoril] 15 - 30 mg PO QPM PRN 04/02/15 Triamterene/Hydrochlorothiazid [Triamterene-Hctz 37.5-25 mg Cp] 1 tab PO DAILY 04/02/15 Furosemide [Furosemide] 40 mg PO SUMOWEFR@0800 02/12/18 Melatonin 5 mg PO QPM 02/12/18 Metoprolol Succinate [Toprol Xl] 50 mg PO QPM 02/12/18 Potassium Chloride 20 meq PO DAILY 02/12/18 Ropinirole HCl [Ropinirole HCl] 1 mg PO QPM 02/12/18 Bifidobacterium Infantis [Align] 4 mg PO DAILY 02/13/18 Warfarin Sodium 6 mg PO SUTUTHSA@2100 02/13/18 Warfarin [Coumadin] 4 mg PO MOWEFR@2100 02/13/18 Objective - Vital Signs/Intake & Output Reviewed Vital Signs: Yes Vital Signs: Vital Signs Temp Pulse Resp BP Pulse Ox 02/13/18 13:00 83 16 98/53 L 100 02/13/18 12:30 75 16 129/70 100 02/13/18 12:25 79 18 109/47 L 100 02/13/18 12:20 37.6 C H 79 19 102/79 100 02/13/18 12:15 74 15 120/58 L 99 02/13/18 12:02 76 20 103/52 L 98 02/13/18 11:55 72 19 122/44 L 99 02/13/18 11:50 78 19 114/46 L 98 02/13/18 11:45 70 20 122/40 L 99 02/13/18 11:40 71 22 124/51 L 99 02/13/18 11:30 71 22 137/55 H 99 02/13/18 11:15 70 25 H 126/50 L 99 02/13/18 11:10 87 30 H 105/48 L 97 02/13/18 11:05 71 25 H 109/44 L 99 02/13/18 11:00 72 17 125/43 L 99 02/13/18 10:55 72 19 121/46 L 99 02/13/18 10:46 74 26 H 110/36 L 92 02/13/18 10:30 74 21 108/46 L 93 02/13/18 10:15 70 23 109/80 94 02/13/18 10:00 70 19 124/44 L 97 Intake & Output: Intake & Output 02/10/18 02/11/18 02/12/18 02/13/18 23:59 23:59 23:59 23:59 Intake Total 1073.865 3598.128 Output Total 1170 1074 Balance 056.331 6716.128 - Objective General Appearance: positive: No acute distress, Alert, Other (she was asleep but woke easily.) Eyes Bilateral: positive: PERRL ENT: positive: Dry mucous membranes (from mouth breathing this time. she has been receiving IVF and ice chips) Respiratory: positive: No respiratory distress. negative: Wheezes, Rales, Rhonchi Cardiovascular: positive: Regular rate & rhythm. negative: Gallop/S4, Friction rub Abdomen: positive: No organomegaly, Nml bowel sounds, No distention, Tenderness (in RLQ, a hands breath above inguinal fold , in panus). negative: Guarding, Rebound Skin: positive: Warm, Dry Extremities: positive: Non-tender, No pedal edema Neurologic/Psychiatric: positive: Oriented x3, CN's nml (2-12), Motor nml - Lab Results Fish Bones: 02/13/18 04:40 02/13/18 04:40 Other Labs: Lab Results x24hrs 02/13/18 02/13/18 02/13/18 Range/Units 05:00 04:40 04:40 WBC (4.8-10.8) x10^3/uL RBC (4.20-5.40) 10^6/uL Hgb (12.0-16.0) g/dL Hct (37.0-47.0) % MCV (81.0-99.0) fL MCH (27.0-31.0) pg MCHC (32.0-36.0) g/dL RDW (12.0-15.0) % Plt Count (130-450) 10^3/uL MPV (7.9-10.8) fL Neut # Lymph # [place] # Eos # Baso # Absolute Nucleated RBC Total Counted Band Neuts % (Manual) (0 - 10) % Abnorm Lymph % (Manual) % Nucleated RBC % Neutrophils # (Manual) (1.5-6.6) 10^3/uL Lymphocytes # (Manual) (1.5-3.5) 10^3/uL Monocytes # (Manual) (0.0-1.0) 10^3/uL Eosinophils # (Manual) (0-0.7) 10^3/uL Basophils # (Manual) (0-0.1) 10^3/uL Differential Comment Platelet Estimate (NORMAL) Platelet Morphology (NORMAL) RBC Morph Micro Appear (NORMAL) Sodium 139 (135-145) mmol/L Potassium 3.9 (3.5-5.0) mmol/L Chloride 108 (101-111) mmol/L Carbon Dioxide 23 (21-32) mmol/L Anion Gap 8.0 (6-13) BUN 23 H (6-20) mg/dL Creatinine 0.8 (0.4-1.0) mg/dL Estimated GFR (MDRD) 70 L (>89) Glucose 132 H (70-100) mg/dL Lactic Acid 1.3 (0.5-2.2) mmol/L Calcium 8.0 L (8.5-10.3) mg/dL Phosphorus 3.8 (2.5-4.6) mg/dL Magnesium 2.1 (1.7-2.8) mg/dL Albumin 3.0 L (3.2-5.5) g/dL 02/13/18 02/12/18 02/12/18 Range/Units 04:40 22:15 22:15 WBC 26.6 H (4.8-10.8) x10^3/uL RBC 3.75 L (4.20-5.40) 10^6/uL Hgb 11.8 L (12.0-16.0) g/dL Hct 36.7 L (37.0-47.0) % MCV 97.9 (81.0-99.0) fL MCH 31.4 H (27.0-31.0) pg MCHC 32.1 (32.0-36.0) g/dL RDW 14.8 (12.0-15.0) % Plt Count 223 (130-450) 10^3/uL MPV 8.5 (7.9-10.8) fL Neut # Not Reportable Lymph # Not Reportable [place] # Not Reportable Eos # Not Reportable Baso # Not Reportable Absolute Nucleated RBC Not Reportable Total Counted 100 Band Neuts % (Manual) 15 H (0 - 10) % Abnorm Lymph % (Manual) 0 % Nucleated RBC % Not Reportable Neutrophils # (Manual) 22.9 H (1.5-6.6) 10^3/uL Lymphocytes # (Manual) 2.1 (1.5-3.5) 10^3/uL Monocytes # (Manual) 1.6 H (0.0-1.0) 10^3/uL Eosinophils # (Manual) 0.0 (0-0.7) 10^3/uL Basophils # (Manual) 0.0 (0-0.1) 10^3/uL Differential Comment MANUAL DIFFERENTIAL Platelet Estimate NORMAL (130-450,000) (NORMAL) Platelet Morphology NORMAL APPEARANCE (NORMAL) RBC Morph Micro Appear NORMAL APPEARANCE (NORMAL) Sodium (135-145) mmol/L Potassium (3.5-5.0) mmol/L Chloride (101-111) mmol/L Carbon Dioxide (21-32) mmol/L Anion Gap (6-13) BUN (6-20) mg/dL Creatinine (0.4-1.0) mg/dL Estimated GFR (MDRD) (>89) Glucose (70-100) mg/dL Lactic Acid (0.5-2.2) mmol/L Calcium (8.5-10.3) mg/dL Phosphorus 4.4 (2.5-4.6) mg/dL Magnesium 1.9 (1.7-2.8) mg/dL Albumin (3.2-5.5) g/dL 02/12/18 02/12/18 Range/Units 22:15 22:15 WBC (4.8-10.8) x10^3/uL RBC (4.20-5.40) 10^6/uL Hgb (12.0-16.0) g/dL Hct (37.0-47.0) % MCV (81.0-99.0) fL MCH (27.0-31.0) pg MCHC (32.0-36.0) g/dL RDW (12.0-15.0) % Plt Count (130-450) 10^3/uL MPV (7.9-10.8) fL Neut # Lymph # [place] # Eos # Baso # Absolute Nucleated RBC Total Counted Band Neuts % (Manual) (0 - 10) % Abnorm Lymph % (Manual) % Nucleated RBC % Neutrophils # (Manual) (1.5-6.6) 10^3/uL Lymphocytes # (Manual) (1.5-3.5) 10^3/uL Monocytes # (Manual) (0.0-1.0) 10^3/uL Eosinophils # (Manual) (0-0.7) 10^3/uL Basophils # (Manual) (0-0.1) 10^3/uL Differential Comment Platelet Estimate (NORMAL) Platelet Morphology (NORMAL) RBC Morph Micro Appear (NORMAL) Sodium (135-145) mmol/L Potassium 4.5 (3.5-5.0) mmol/L Chloride (101-111) mmol/L Carbon Dioxide (21-32) mmol/L Anion Gap (6-13) BUN (6-20) mg/dL Creatinine (0.4-1.0) mg/dL Estimated GFR (MDRD) (>89) Glucose (70-100) mg/dL Lactic Acid 1.3 (0.5-2.2) mmol/L Calcium (8.5-10.3) mg/dL Phosphorus (2.5-4.6) mg/dL Magnesium (1.7-2.8) mg/dL Albumin (3.2-5.5) g/dL Assessment/Plan - Problem List (1) Acute generalized abdominal pain Impression: she presented as sudden onset of mid abd, colicky pain radiating thru to her back. agonizing. CT of abdomen and CTA does not show rupturing aneurysm, no ischemia, no bowel perf, no free air, no CBD stone, no pancreas problem, no thickened bowel. She did have a fever and elevated WBC. She has been placed on empiric IV abx for bowel infection and is responding with no fever but her WBC is up . Plan: Day #2 empiric abx. exam has improved so no new studies ordered. (2) Sepsis associated hypotension Impression: still on levophed but needing less. [place] as cause of low BP ruled out with troponins. Source appears to be infection, but not identified. Continue abx. continue levophed until BP stable on its own. (3) SCOTT on CPAP Impression: using her machine from home. stable. Reviewed [place] records. Home sleep testing 09/17/13 shows AHI 57.7. no positional difference, minimum spo2 was 80%. CPAP titration study failed to find optimal pressure to 20 cm. BiPAP titration study showed improvement in SCOTT at 25/17 including supine/REM. (4) CAD (coronary artery disease) Impression: no angina. Review of [place] records: 03/09/08 Cyper stent to LAD for accelerated exercise angina. Normal EF. Moderate disease in Cfx. No change in meds for now. Stress test done 12/09/15 for preop knee . developed significant symptoms which included headache Resolved spontaneously. Resting EKG nml. At peak stress injected with Tc 99m MIBI 30 mCi. No sig perfusion abnormalities. Normal study. No ischemia or infarction. EF 72%. No reversible defects. Qualifiers: Coronary Disease-Associated Artery/Lesion type: [place] artery [place] vs. transplanted heart: [place] heart Associated angina: without angina Qualified Code(s): I25.10 - Atherosclerotic heart disease of [place] coronary artery without angina pectoris (5) Pulmonary emboli Impression: happened March,. To be on lifelong coumadin. INR was >3 and coumadin held until INR < 3. Needs lab order for that and I will check. Qualifiers: Pulmonary embolism type: other Chronicity: unspecified
[2018-02-13] MEDS: SODIUM CHLORIDE FLUSH 0.9% 10 ML SYRINGE IVP PRN ×2 (19:28→21:08)
[2018-02-13] MEDS: rOPINIRole 1 MG TABLET PO SCH (20:55)
[2018-02-13] MEDS: ATORVASTATIN 40 MG TABLET PO SCH (20:55)
[2018-02-13] MEDS: TEMAZEPAM 15 MG CAPSULE PO PRN (20:55)
[2018-02-14] MEDS: SODIUM CHLORIDE FLUSH 0.9% 10 ML SYRINGE IVP PRN ×3 (03:20→20:40)
[2018-02-14] MEDS: PIPERACILLIN/TAZOBACTAM 3.375 GM in SODIUM CHLORIDE 0.9% MINIBAG 100 ML IV SCH ×4 (03:20→20:39)
[2018-02-14 03:37] LABS: BASOPHILS # (AUTO) 0.1 10^3/uL (0.0-0.1); BASOPHILS % (AUTO) 0.4 %; EOSINOPHILS % (AUTO) 0.3 %; HGB - HEMOGLOBIN 10.4 g/dL (12.0-16.0); LYMPHOCYTES # (AUTO) 1.7 10^3/uL (1.5-3.5); LYMPHOCYTES % (AUTO) 12.6 %; MEAN CORPUSCULAR HEMOGLOBIN 31.3 pg (27.0-31.0); MEAN CORPUSCULAR HGB CONC 32.1 g/dL (32.0-36.0); MEAN CORPUSCULAR VOLUME 97.6 fL (81.0-99.0); MEAN PLATELET VOLUME 8.1 fL (7.9-10.8); MONOCYTES # (AUTO) 0.8 10^3/uL (0.0-1.0); NEUTROPHILS # (AUTO) 11.1 10^3/uL (1.5-6.6); NEUTROPHILS % (AUTO) 80.7 %; PLT - PLATELET COUNT 174 10^3/uL (130-450); RED BLOOD COUNT 3.33 10^6/uL (4.20-5.40); RED CELL DISTRIBUTION WIDTH 14.6 % (12.0-15.0); WHITE BLOOD COUNT 13.8 x10^3/uL (4.8-10.8)
[2018-02-14 03:44] LABS: INR 2.4 (0.8-1.2); PT - PROTHROMBIN TIME 25.7 secs (9.9-12.6)
[2018-02-14 03:50] LABS: CREATININE 0.7 mg/dL (0.4-1.0); PHOSPHORUS 2.2 mg/dL (2.5-4.6)
[2018-02-14 03:54] LABS: VBG PH 7.331 (7.31-7.41)
[2018-02-14] MEDS: ACETAMINOPHEN 325 MG TABLET PO PRN ×2 (05:38→19:48)
[2018-02-14] MEDS: PANTOPRAZOLE 40 MG VIAL IVP SCH (05:38)
[2018-02-14] MEDS: SODIUM CHLORIDE FLUSH 0.9% 10 ML SYRINGE IVP SCH ×4 (05:38→20:40)
[2018-02-14] MEDS: metroNIDAZOLE 500 MG/100 ML 500 MG/100 ML BAG IV SCH ×3 (05:42→22:28)
[2018-02-14] MEDS: NEUTRA-PHOS 250 MG TABLET PO SCH ×2 (05:53→08:12)
[2018-02-14] MEDS: SODIUM CHLORIDE 0.9% 1,000 ML IV SCH (08:01)
--- NOTE | 2018-02-14 08:11 | PROVIDER PROGRESS NOTE ---
Subjective - Prog Note Date Prog Note Date: 02/14/18 Prog Note Time: 08:05 - Subjective Pt reports feeling: Improved Subjective: she is hungry and eating (+) flatus and wants something for BM no abd pain no emesis no fever still on levophed and if drops to 0, BP is 70's systolic. Current Medications - Current Medications Current Medications: Active Medications Acetaminophen (Tylenol) 650 mg PO Q4HR PRN PRN Reason: Pain or Fever > 38C (100.4F) Last Admin: 02/14/18 05:38 Dose: 650 mg Atorvastatin Calcium (Lipitor) 80 mg PO QPM [facility] Last Admin: 02/13/18 20:55 Dose: 80 mg Heparin Sodium (Beef Lung) () 30 - 50 unit IVP PRN PRN PRN Reason: Central Line Protocol (<24 hr) Last Admin: 02/14/18 03:20 Dose: 30 unit Sodium Chloride (Normal Saline 0.9%) 1,000 mls @ 100 mls/hr IV .Q10H [facility] Last Infusion: 02/14/18 06:55 Dose: 100 mls/hr Metronidazole (Flagyl 500 Mg/100 Ml) 500 mg in 100 mls @ 100 mls/hr IV Q8HR [facility] Last Infusion: 02/14/18 06:42 Dose: Infused Piperacillin Sod/Tazobactam (Sod 3.375 gm/ Sodium Chloride) 100 mls @ 200 mls/ hr IV Q6H [facility] Last Infusion: 02/14/18 03:50 Dose: Infused Norepinephrine Bitartrate 8 mg (/ Dextrose) 250 mls @ 41.25 mls/hr IV .Q6H4M [facility]; 22 MCG/MIN PRN Reason: Protocol Last Titration: 02/14/18 07:00 Dose: 1 mcg/min, 1.87 mls/hr Morphine Sulfate (Morphine) 2 mg IVP Q2H PRN PRN Reason: Pain 8 to 10 Ondansetron HCl (Zofran Inj) 4 mg IVP Q6HR PRN PRN Reason: Nausea / Vomiting Ondansetron HCl (Zofran Odt) 4 mg TL Q6HR PRN PRN Reason: Nausea / Vomiting Oxycodone HCl (Roxicodone) 5 mg PO Q4HR PRN PRN Reason: Pain 5 to 7 Last Admin: 02/13/18 16:12 Dose: 5 mg Pantoprazole Sodium (Protonix) 40 mg IVP QDAC [facility] Last Admin: 02/14/18 05:38 Dose: 40 mg Ropinirole HCl (Requip) 1 mg PO QPM [facility] Last Admin: 02/13/18 20:55 Dose: 1 mg Sodium Chloride (Normal Saline Flush 0.9%) 10 ml IVP 0100,0900,1700 [facility] Last Admin: 02/14/18 05:38 Dose: 10 ml Sodium Chloride (Normal Saline Flush 0.9%) 10 ml IVP PRN PRN PRN Reason: NEEDED PER PROVIDER ORDERS Last Admin: 02/14/18 05:38 Dose: 10 ml Temazepam (Restoril) 15 - 30 mg PO HS PRN PRN Reason: Insomnia Last Admin: 02/13/18 20:55 Dose: 15 mg Aspirin [Aspir 81] 81 mg PO DAILY 04/02/15 Atorvastatin Calcium [Lipitor] 80 mg PO QPM 04/02/15 Paroxetine HCl [Paxil] 30 mg PO DAILY 04/02/15 Temazepam [Restoril] 15 - 30 mg PO QPM PRN 04/02/15 Triamterene/Hydrochlorothiazid [Triamterene-Hctz 37.5-25 mg Cp] 1 tab PO DAILY 04/02/15 Furosemide [Furosemide] 40 mg PO SUMOWEFR@0800 02/12/18 Melatonin 5 mg PO QPM 02/12/18 Metoprolol Succinate [Toprol Xl] 50 mg PO QPM 02/12/18 Potassium Chloride 20 meq PO DAILY 02/12/18 Ropinirole HCl [Ropinirole HCl] 1 mg PO QPM 02/12/18 Bifidobacterium Infantis [Align] 4 mg PO DAILY 02/13/18 Warfarin Sodium 6 mg PO SUTUTHSA@2100 02/13/18 Warfarin [Coumadin] 4 mg PO MOWEFR@209902/13/18 Objective - Vital Signs/Intake & Output Reviewed Vital Signs: Yes Vital Signs: Vital Signs Pulse Resp BP Pulse Ox 02/14/18 07:00 70 18 94/41 L 94 02/14/18 06:00 75 23 99/45 L 97 02/14/18 05:45 68 109/47 L 02/14/18 05:30 72 112/47 L 02/14/18 05:25 76 92/58 L 02/14/18 05:20 126/75 02/14/18 05:15 72 107/38 L 02/14/18 05:10 71 118/51 L 02/14/18 05:00 71 20 121/45 L 98 02/14/18 04:10 75 107/45 L Intake & Output: Intake & Output 02/11/18 02/12/18 02/13/18 02/14/18 23:59 23:59 23:59 23:59 Intake Total 3064.619 4616.564 1477.806 Output Total 1170 2114 1105 Balance 469.564 1621.564 372.806 - Objective General Appearance: positive: No acute distress, Alert, Other (morbidly obese white female in ICU with right neck central line) Eyes Bilateral: positive: PERRL ENT: positive: Pharynx nml Neck: positive: No JVD. negative: Stiff neck, Carotid bruit Respiratory: positive: Chest non-tender. negative: Wheezes, Rales, Rhonchi Cardiovascular: positive: Regular rate & rhythm. negative: Gallop/S4, Friction rub Abdomen: positive: Non-tender, No organomegaly, Nml bowel sounds, No distention Extremities: positive: Full ROM, No pedal edema Neurologic/Psychiatric: positive: Oriented x3, CN's nml (2-12), Motor nml - Lab Results Fish Bones: 02/14/18 03:30 02/14/18 03:30 Other Labs: Lab Results x24hrs 02/14/18 02/14/18 02/14/18 Range/Units 03:30 03:30 03:30 WBC (4.8-10.8) x10^3/uL RBC (4.20-5.40) 10^6/uL Hgb (12.0-16.0) g/dL Hct (37.0-47.0) % MCV (81.0-99.0) fL MCH (27.0-31.0) pg MCHC (32.0-36.0) g/dL RDW (12.0-15.0) % Plt Count (130-450) 10^3/uL MPV (7.9-10.8) fL Neut # (1.5-6.6) 10^3/uL Lymph # (1.5-3.5) 10^3/uL [place] # (0.0-1.0) 10^3/uL Eos # (0.0-0.7) 10^3/uL Baso # (0.0-0.1) 10^3/uL Absolute Nucleated RBC x10^3/uL Nucleated RBC % /100WBC PT (9.9-12.6) secs INR (0.8-1.2) VBG pH 7.331 (7.31-7.41) Ionized Calcium 1.14 L (1.15-1.33) mmol/L Sodium (135-145) mmol/L Potassium (3.5-5.0) mmol/L Chloride (101-111) mmol/L Carbon Dioxide (21-32) mmol/L Anion Gap (6-13) BUN (6-20) mg/dL Creatinine (0.4-1.0) mg/dL Estimated GFR (MDRD) (>89) Glucose (70-100) mg/dL Lactic Acid 0.7 (0.5-2.2) mmol/L Calcium (8.5-10.3) mg/dL Phosphorus (2.5-4.6) mg/dL Magnesium 2.2 (1.7-2.8) mg/dL 18 02/14/18 02/14/18 Range/Units 03:30 03:30 03:30 WBC 13.8 H (4.8-10.8) x10^3/uL RBC 3.33 L (4.20-5.40) 10^6/uL Hgb 10.4 L (12.0-16.0) g/dL Hct 32.5 L (37.0-47.0) % MCV 97.6 (81.0-99.0) fL MCH 31.3 H (27.0-31.0) pg MCHC 32.1 (32.0-36.0) g/dL RDW 14.6 (12.0-15.0) % Plt Count 174 (130-450) 10^3/uL MPV 8.1 (7.9-10.8) fL Neut # 11.1 H (1.5-6.6) 10^3/uL Lymph # 1.7 (1.5-3.5) 10^3/uL [place] # 0.8 (0.0-1.0) 10^3/uL Eos # 0.0 (0.0-0.7) 10^3/uL Baso # 0.1 (0.0-0.1) 10^3/uL Absolute Nucleated RBC 0.00 x10^3/uL Nucleated RBC % 0.0 /100WBC PT 25.7 H (9.9-12.6) secs INR 2.4 H (0.8-1.2) VBG pH (7.31-7.41) Ionized Calcium (1.15-1.33) mmol/L Sodium 136 (135-145) mmol/L Potassium 3.7 (3.5-5.0) mmol/L Chloride 106 (101-111) mmol/L Carbon Dioxide 24 (21-32) mmol/L Anion Gap 6.0 (6-13) BUN 13 (6-20) mg/dL Creatinine 0.7 (0.4-1.0) mg/dL Estimated GFR (MDRD) 82 L (>89) Glucose 108 H (70-100) mg/dL Lactic Acid (0.5-2.2) mmol/L Calcium 8.0 L (8.5-10.3) mg/dL Phosphorus 2.2 L (2.5-4.6) mg/dL Magnesium (1.7-2.8) mg/dL Assessment/Plan - Problem List (1) Acute generalized abdominal pain Impression: Resolved. Unknown cause with only thoughts being either sudden but resolved bowel ischemia or duodenal pain. She does have a thickened stomach and duodenum on CT with a history of duodenal Crohn's ulcer. she presented as sudden onset of mid abd, colicky pain radiating thru to her back. agonizing. CT of abdomen and CTA does not show rupturing aneurysm, no ischemia, no bowel perf, no free air, no CBD stone, no pancreas problem, no thickened bowel. She did have a fever and elevated WBC. She has been placed on empiric IV abx for bowel infection and is responding with no fever but her WBC was up yesterday. Today finally dropped from 26K to 13K . 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 I spoke to Trauma/Surgery conference services director at [facility] yesterday and spoke at length to her. I was basically asking for review of my DD and to make sure I wasn't missing bowel ischemia. She felt that we were doing what we needed to and that while acute ischemia was possible 02/12, the patient wasn't manifesting severe illness enough to warrant interventional radiology or surgery. I truly appreciated the conversation and the effort she made in going over the case. No changes were made. Plan: Day #3 empiric abx. exam has improved so no new studies ordered. I have asked her to consider getting a GI consult for an EGD with her instructional design consultant after she leaves the hospital. (2) Sepsis associated hypotension Impression: still on levophed but needing less. She is down to 1 mcg this am. She does get headaches with it. We did go to 0 this morning but BP dropped too low. [place] as cause of low BP ruled out with troponins. Source appears to be infection, but not identified. Continue abx. continue levophed until BP stable on its own. (3) SCOTT on CPAP Impression: using her machine from home. stable. Reviewed [facility] records. Home sleep testing 09/17/13 shows AHI 57.7. no positional difference, minimum spo2 was 80%. CPAP titration study failed to find optimal pressure to 20 cm. BiPAP titration study showed improvement in SCOTT at 25/17 including supine/REM. (4) CAD (coronary artery disease) Impression: no angina. Review of [facility] records: 03/09/08 Cyper stent to LAD for accelerated exercise angina. Normal EF. Moderate disease in Cfx. No change in meds for now. Stress test done 12/09/15 for preop knee . developed significant symptoms which included headache Resolved spontaneously. Resting EKG nml. At peak stress injected with Tc 99m MIBI 30 mCi. No sig perfusion abnormalities. Normal study. No ischemia or infarction. EF 72%. No reversible defects. Qualifiers: Coronary Disease-Associated Artery/Lesion type: [place] artery [place] vs. transplanted heart: [place] heart Associated angina: without angina Qualified Code(s): I25.10 - Atherosclerotic heart disease of [place] coronary artery without angina pectoris (5) Pulmonary emboli Impression: happened March,. To be on lifelong coumadin. INR was >3 and coumadin held until INR < 3. Needs lab order for that and I will check. INR 2.4 this am. Resume coumadin. Qualifiers: Pulmonary embolism type: other Chronicity: unspecified
[2018-02-14] MEDS: ATORVASTATIN 40 MG TABLET PO SCH (20:37)
[2018-02-14] MEDS: TEMAZEPAM 15 MG CAPSULE PO PRN (20:37)
[2018-02-14] MEDS: rOPINIRole 1 MG TABLET PO SCH (20:38)
[2018-02-14] MEDS ORDERED: WARFARIN 1 MG TABLET PO SCH ×2 (21:00)
[2018-02-14] MEDS ORDERED: WARFARIN 5 MG TABLET PO SCH (21:00)
[2018-02-15] MEDS: PIPERACILLIN/TAZOBACTAM 3.375 GM in SODIUM CHLORIDE 0.9% MINIBAG 100 ML IV SCH ×2 (02:11→07:45)
[2018-02-15] MEDS: SODIUM CHLORIDE FLUSH 0.9% 10 ML SYRINGE IVP SCH ×2 (02:16→08:42)
[2018-02-15] MEDS: SODIUM CHLORIDE FLUSH 0.9% 10 ML SYRINGE IVP PRN ×2 (04:46→06:24)
[2018-02-15 04:58] LABS: VBG PH 7.366 (7.31-7.41)
[2018-02-15 05:00] LABS: BASOPHILS # (AUTO) 0.1 10^3/uL (0.0-0.1); BASOPHILS % (AUTO) 0.8 %; EOSINOPHILS # (AUTO) 0.1 10^3/uL (0.0-0.7); EOSINOPHILS % (AUTO) 1.5 %; LYMPHOCYTES % (AUTO) 25.6 %; MEAN CORPUSCULAR HGB CONC 32.9 g/dL (32.0-36.0); MEAN CORPUSCULAR VOLUME 97.2 fL (81.0-99.0); MEAN PLATELET VOLUME 8.4 fL (7.9-10.8); MONOCYTES # (AUTO) 0.6 10^3/uL (0.0-1.0); MONOCYTES % (AUTO) 7.2 %; NEUTROPHILS # (AUTO) 5.2 10^3/uL (1.5-6.6); NEUTROPHILS % (AUTO) 64.9 %; PLT - PLATELET COUNT 181 10^3/uL (130-450); RED BLOOD COUNT 3.43 10^6/uL (4.20-5.40); RED CELL DISTRIBUTION WIDTH 14.2 % (12.0-15.0)
[2018-02-15 05:16] LABS: ALBUMIN 2.8 g/dL (3.2-5.5); ALBUMIN/GLOBULIN RATIO 0.9 (1.0-2.2); ALKALINE PHOSPHATASE 59 IU/L (42-121); ALT ALANINE AMINOTRANSFERASE 34 IU/L (10-60); AST ASPARTATE AMINOTRANSFERASE 30 IU/L (10-42); BILIRUBIN,TOTAL 1.3 mg/dL (0.2-1.0); BUN - BLOOD UREA NITROGEN 12 mg/dL (6-20); CALCIUM 8.3 mg/dL (8.5-10.3); CARBON DIOXIDE - CO2 23 mmol/L (21-32); CHLORIDE 109 mmol/L (101-111); CREATININE 0.7 mg/dL (0.4-1.0); GFR - MDRD 82 (>89); GLUCOSE 90 mg/dL (70-100); SODIUM 141 mmol/L (135-145)
[2018-02-15 05:17] LABS: VBG PH 7.366 (7.31-7.41)
[2018-02-15] MEDS: metroNIDAZOLE 500 MG/100 ML 500 MG/100 ML BAG IV SCH (06:24)
[2018-02-15] MEDS: PANTOPRAZOLE 40 MG VIAL IVP SCH (06:24)
[2018-02-15] MEDS ORDERED: SODIUM CHLORIDE FLUSH 0.9% 10 ML SYRINGE ONE (06:30)
[2018-02-15] MEDS: NEUTRA-PHOS 250 MG TABLET PO SCH ×2 (08:36→12:00)
[2018-02-15] MEDS ORDERED: CIPROFLOXACIN 250 MG TABLET PO SCH (13:00)
[2018-02-15] MEDS ORDERED: metroNIDAZOLE 250 MG TABLET PO SCH (13:00)
[2018-02-15 13:53] VITALS: BP 144/55
--- NOTE | 2018-02-15 16:28 | Discharge Plan ---
Discharge Plan Disposition: 01 Home, Self Care Condition: Good Prescriptions: Ciprofloxacin [Cipro] 500 mg PO BID #8 tablet metroNIDAZOLE [Flagyl] 500 mg PO Q8H #12 tablet Diet: Regular Activity Restrictions: Activity as Tolerated Shower Restrictions: No Driving Restrictions: No Instruction Topics: Sepsis Additional Instructions or Follow Up instructions: We have spent a lot of time discussing your case with one another. You are someone who presented to us with a sudden onset of waxing and waning, colicky agonizing, abdominal pain that radiated through to your back. It lasted several hours before you were able to get to the hospital. We did identify you as having an elevated white cell count, fever, a low blood pressure indicating sepsis/infection. We did evaluate you for aneurysms of your abdomen and chest and did not find any on the CT angiogram. In fact the CT abdomen and chest were negative for any type of colitis, common bile duct stone, pancreatitis, kidney stone, kidney infection, bowel infection, bowel inflammation or bowel ischemia. 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 We placed you in the ICU and put you on medicine that would elevate your blood pressure. The medicine was called levofed. We also put you on antibiotic therapy to treat any type of abdominal infection in the form of Zosyn and Flagyl. You responded very well to our supportive care. But I have to be honest with you that we do not know why you have the abdominal pain or what the cause was. I am asking you to follow-up with Dr. Milton Mancuso, your behavioral health tech. Not because you have a heart problem that is new, but because he may know a vascular surgeon or vascular interventionalists to refer you to for further evaluation. You will be going home to finish antibiotic therapy in the form of Cipro and Flagyl. Take an [id number] probiotic every day while you are on antibiotics to help with any diarrhea. If you develop fever, bloody stool, recurrent abdominal pain, or severe change in her overall status, please come back to the emergency room. No Smoking: If you smoke, Please STOP! Call for help. Follow-up with: Kody Garcia MD [Primary Care Provider] - Milton Mancuso MD [Provider Admit Priv/Credential] -
[2018-02-15] MEDS ORDERED: WARFARIN 1 MG TABLET PO SCH (21:00)
--- NOTE | 2018-02-16 18:45 | DISCHARGE SUMMARY ---
Discharge Summary Admit Date: 02/12/18 Discharge Date: 02/15/18 Discharging Provider: Naye Castillo MD Primary Care Provider: Kody Garcia MD [facility] Code Status: Attempt Resuscitation Condition at Discharge: Good Discharge Disposition: 01 Home, Self Care - DIAGNOSES Discharge Diagnoses with Status of Each Condition: 1. Acute generalized abdominal pain,resolved 2. Stenosis of celiac artery, chronic 3. Sepsis with hypotension, resolved 4. Obstructive sleep apnea, chronic 5. History of coronary artery disease, [place] artery 6. History of pulmonary embolism - HPI History of Present Illness: She is a 72-year-old female who is morbidly obese, and has complications of coronary artery disease with stents, obstructive sleep apnea on BiPAP, and quiescent Crohn's colitis. She is seen regularly by all of her providers and is up-to-date with all of her exams. She described herself as independent, and in fact is the care provider for her . She was at her friend's house dog sitting. She went to bed after eating dinner around 6 PM. At 11:30 at night she was awakened by agonizing mid abdominal pain that radiated straight through to her back. She described it as a waxing and waning, colicky phenomena. It was a 10 out of a 10. The pain was severe enough that it was accompanied by confusion. It took her a while to figure out how to call her . She basically laying in bed all night long. When she finally called her , he was the one that called 911 with an ambulance that brought her to the hospital. In our emergency room she was hypotensive, afebrile, blood pressure down to 62/57 in the emergency room. Heart rate was in the 70s-90s and she was oxygenating well. Her abdomen was nontender, there was no pulsatile mass. She was evaluated for a dissecting aneurysm and a CT angiogram of the chest and abdomen was done. While she had diffuse arterial sclerosis, the only artery that was severely stenosed was the celiac artery. Potassium is low at 2.9. Lactic acid was 2.7 and she had a total bili of 2.5. Troponin was less than 0.04. White cell count was elevated at 22,000. Resuscitation in the emergency room consisted of a central line with bolus of 0.9 normal saline, started on levo fed, and started on Zosyn and Flagyl for empiric abdominal catastrophe. - CONSULTS | PROCEDURES Procedures: 1. Abdomen pelvis CT angiogram showed mild cardiomegaly, greater than 50% diameter narrowing origins of the left subclavian and celiac arteries. The celiac artery was 90% obstructed. 40% diameter narrowing of the origin of the superior mesenteric artery. No biliary duct dilatation. Fatty liver. Spleen, pancreas, adrenal glands, and kidneys were normal. 2. Chest x-ray before PICC line showed diffuse and subtle prominence of the lungs and pleura but no consolidation, effusion, or pneumothorax. Mild cardiomegaly. Diffuse vascular fullness. 3. Blood cultures negative after 2 days 4. Moderate occult blood on urinalysis with 6-10 red cells. - HOSPITAL COURSE Hospital Course: Hospital course was relatively straightforward in that she responded to leave effect, antibiotics. Over the next 2 days she did require Levophed support to maintain her systolic blood pressure above 100 and to maintain a mean arterial pressure over 65. I examined and reexamined her. When she was first placed in the ICU she had no bowel sounds, no flatus. Bowel sounds gradually returned by the second day, and by the third day she had loud borborygmi radiating to her chest. Flatus began on the second day. I advanced her diet from clears to regular and she was able to eat by the third day without any nausea or emesis. On the first day she still had a vague sensation of abdominal pain and she called it a "echo" of what she felt before she came to the emergency room. Levophed was finally able to be tapered off. I am asking her to resume her blood pressure medicines after a day or two at home. I considered a differential diagnosis that was quite wide. I thought of common bile duct stones but her common bile duct was 3 mm and she already had her gallbladder out. I thought of ischemic colitis since pain was out of proportion to physical exam but CT of the abdomen did not show any colitis or thickened bowel wall. Pancreatitis was entertained but she had no pancreatic inflammation and lipase was normal. Ruptured duodenal ulcer in a patient who has a history of duodenal ulcer from Crohn's colitis was thought of. But she had resolution of her pain. She was treated with empiric proton pump inhibitors. She was able to eat without any recurrence of her pain. Kidney stone was thought of. Again, her CAT scan was re-reviewed with [facility] radiologist, and there were no stones that were obstructing. She had some small stones but none of them are causing hydroureter. I even reviewed her case with the General Surgeon education reviewer at [place] to make sure I wasn't missing something, and no new diagnosis was thought of. I was honest with the patient and explained that I did not know why she had such agonizing abrupt pain. It certainly was descriptive as a visceral organ being distended or inflamed with distention. She had hypotension and an elevated white cell count. Her abdominal exam was relatively benign with regards to rebound and guarding, and the only indication of something going wrong was no bowel sounds the first day and no flatus. I am asking her to see her granite polisher machine in follow-up not because I think she has cardiac problems, but because he may be able to refer her to a vascular surgeon for opinion. Or a vascular radiology oyster shipper for the celiac artery. Obstructive sleep apnea was not part of the differential but her BiPAP mask was brought in from home. She had no problems with an ME and troponins and EKG were negative for a second time. Her INR was slightly prolonged and her Coumadin was held for a couple of days and then resumed when it dropped below 3. - ALLERGIES Allergies/Adverse Reactions: Allergies Allergy/AdvReac Type Severity Reaction Status Date / Time adhesive Allergy Unknown Verified 02/16/18 16:08 Sulfa (Sulfonamide Allergy Rash Verified 02/16/18 16:08 Antibiotics) tetracycline Allergy Unknown Verified 02/16/18 16:08 - MEDICATIONS Home Medications: Ambulatory Orders Medication Instructions Recorded Confirmed Aspirin [Aspir 81] 81 mg PO DAILY 04/02/15 02/13/18 Atorvastatin Calcium [Lipitor] 80 mg PO QPM 04/02/15 02/13/18 Paroxetine HCl [Paxil] 30 mg PO DAILY 04/02/15 02/13/18 Temazepam [Restoril] 15 - 30 mg PO QPM PRN 04/02/15 02/13/18 Triamterene/Hydrochlorothiazid 1 tab PO DAILY 04/02/15 02/13/18 [Triamterene-Hctz 37.5-25 mg Cp] Furosemide 40 mg PO SUMOWEFR@0800 02/12/18 02/13/18 Melatonin 5 mg PO QPM 02/12/18 02/13/18 Metoprolol Succinate [Toprol Xl] 50 mg PO QPM 02/12/18 02/13/18 Potassium Chloride 20 meq PO DAILY 02/12/18 02/13/18 Ropinirole HCl 1 mg PO QPM 02/12/18 02/13/18 Bifidobacterium Infantis [Align] 4 mg PO DAILY 02/13/18 02/13/18 Warfarin Sodium 6 mg PO SUTUTHSA@2100 02/13/18 02/13/18 Warfarin [Coumadin] 4 mg PO MOWEFR@2100 02/13/18 02/13/18 Ciprofloxacin [Cipro] 500 mg PO BID #8 tablet 02/15/18 metroNIDAZOLE [Flagyl] 500 mg PO Q8H #12 tablet 02/15/18 Cephalexin [Keflex] 500 mg PO QID #40 capsule 02/16/18 - PHYSICAL EXAM AT DISCHARGE General Appearance: positive: No acute distress, Alert, Other (moderately obese white female who looks stated age. ) Eyes Bilateral: positive: PERRL, EOMI ENT: positive: Pharynx nml Neck: positive: No JVD. negative: Stiff neck, Carotid bruit Respiratory: positive: Chest non-tender. negative: Wheezes, Rales, Rhonchi Cardiovascular: positive: Regular rate & rhythm. negative: Gallop/S4, Friction rub Peripheral Pulses: positive: 1+ Abdomen: positive: Non-tender, No organomegaly, Nml bowel sounds, No distention Skin: positive: Warm, Dry Extremities: positive: Full ROM, No pedal edema Neurologic/Psychiatric: positive: Oriented x3, CN's nml (2-12), Motor nml - LABS Result Diagrams: 02/15/18 04:40 02/15/18 04:40 - TIME SPENT Time Spent in Discharge (Minutes): 40
== END 2018-02-15 18:40 | disposition home or self-care (01) | DRG 872 ==
LOC: EDUNIT# → ED 12:41 → ICU 15:42
PROVIDERS: ADMIT Specialist; ATTEND Specialist
DX: A41.9 Sepsis, unspecified organism (principal); K50.90 Crohn's disease, unspecified, without complications; M54.5 Low back pain; I77.4 Celiac artery compression syndrome; Z68.42 Body mass index [BMI] 45.0-49.9, adult; I50.32 Chronic diastolic (congestive) heart failure; G47.30 Sleep apnea, unspecified; R10.9 Unspecified abdominal pain; E78.00 Pure hypercholesterolemia, unspecified; Z86.711 Personal history of pulmonary embolism; F41.9 Anxiety disorder, unspecified; Z79.01 Long term (current) use of anticoagulants; Z79.82 Long term (current) use of aspirin; Z95.5 Presence of coronary angioplasty implant and graft; G47.33 Obstructive sleep apnea (adult) (pediatric); I25.10 Atherosclerotic heart disease of native coronary artery without angina pectoris; E66.01 Morbid (severe) obesity due to excess calories; I11.0 Hypertensive heart disease with heart failure; F32.9 Major depressive disorder, single episode, unspecified; M19.90 Unspecified osteoarthritis, unspecified site; Z96.653 Presence of artificial knee joint, bilateral; Z96.1 Presence of intraocular lens; Z88.2 Allergy status to sulfonamides; Z66 Do not resuscitate; E87.6 Hypokalemia
CPT/HCPCS: 36415; 36556; 51702; 71045; 71275; 74174; 80048; 80053; 81001; 81003; 82040; 82330; 83605; 83690; 83735; 84100; 84132; 84484; 85025; 85610; 85730; 87040; 87086; 87150; 93005; 96361; 96365; 96375; 99284; 99285; 99291

== ENCOUNTER 2018-02-16 15:58 | Emergency (ER) | payer MEDICARE, OTHER ==
[2018-02-16] MEDS ORDERED: cephALEXin 250 MG CAPSULE PO STA (16:29)
--- NOTE | 2018-02-16 16:34 | ED Physician Documentation ---
PD HPI LOWER EXT INJURY - Stated complaint Stated Complaint: RASH R ANKLE - Chief complaint Chief Complaint: Wound - History obtained from History obtained from: Patient - History of Present Illness PD HPI LOW EXT INJURY LOCATION: Other (72-year-old woman who had a siena on her right doe before being hospitalized for 4 days and went home without any redness in the leg but now she is spreading redness from the right anterior doe where that siena was. There is no fever.) Review of Systems Constitutional: reports: Reviewed and negative Cardiac: reports: Reviewed and negative Respiratory: reports: Reviewed and negative PD PAST MEDICAL HISTORY - Past Medical History Past Medical History: Yes Cardiovascular: Hypertension, High cholesterol, Pulmonary embolism Respiratory: Sleep apnea, CPAP use GI: Crohn's disease Psych: Anxiety - Past Surgical History Past Surgical History: Yes General: Cholecystectomy Cardiovascular: Coronary stent - Present Medications Home Medications: Ambulatory Orders Medication Instructions Recorded Confirmed Aspirin [Aspir 81] 81 mg PO DAILY 04/02/15 02/13/18 Atorvastatin Calcium [Lipitor] 80 mg PO QPM 04/02/15 02/13/18 Paroxetine HCl [Paxil] 30 mg PO DAILY 04/02/15 02/13/18 Temazepam [Restoril] 15 - 30 mg PO QPM PRN 04/02/15 02/13/18 Triamterene/Hydrochlorothiazid 1 tab PO DAILY 04/02/15 02/13/18 [Triamterene-Hctz 37.5-25 mg Cp] Furosemide 40 mg PO SUMOWEFR@0800 02/12/18 02/13/18 Melatonin 5 mg PO QPM 02/12/18 02/13/18 Metoprolol Succinate [Toprol Xl] 50 mg PO QPM 02/12/18 02/13/18 Potassium Chloride 20 meq PO DAILY 02/12/18 02/13/18 Ropinirole HCl 1 mg PO QPM 02/12/18 02/13/18 Bifidobacterium Infantis [Align] 4 mg PO DAILY 02/13/18 02/13/18 Warfarin Sodium 6 mg PO SUTUTHSA@2100 02/13/18 02/13/18 Warfarin [Coumadin] 4 mg PO MOWEFR@2100 02/13/18 02/13/18 Ciprofloxacin [Cipro] 500 mg PO BID #8 tablet 02/15/18 metroNIDAZOLE [Flagyl] 500 mg PO Q8H #12 tablet 02/15/18 Cephalexin [Keflex] 500 mg PO QID #40 capsule 02/16/18 - Allergies Allergies/Adverse Reactions: Allergies Allergy/AdvReac Type Severity Reaction Status Date / Time adhesive Allergy Unknown Verified 02/16/18 16:08 Sulfa (Sulfonamide Allergy Rash Verified 02/16/18 16:08 Antibiotics) tetracycline Allergy Unknown Verified 02/16/18 16:08 - Social History Does the pt smoke?: No Smoking Status: Never smoker Does the pt have substance abuse?: No - Immunizations Immunizations are current?: Yes PD ED PE NORMAL - Vitals Vital signs reviewed: Yes - General General: Alert and oriented X 3, No acute distress - Extremities Extremities: Other (There is a little abrasion on the anterior right doe with surrounding cellulitis, no calf tenderness or Homans sign.) - Neuro Neuro: Alert and oriented X 3, Normal speech Results - Vitals Vitals: Vital Signs - 24 hr 02/16/18 16:03 Temperature 36.4 C L Heart Rate 76 Respiratory 18 Rate Blood Pressure 164/69 H O2 Saturation 97 Oxygen O2 Source Room air Departure - Departure Disposition: 01 Home, Self Care Clinical Impression: Cellulitis of leg, right Condition: Good Record reviewed to determine appropriate education?: Yes Instructions: Cellulitis Dc Prescriptions: Cephalexin [Keflex] 500 mg PO QID #40 capsule Comments: Return if worse, follow-up with your doctor in approximately 3 days for recheck. Often times when you start antibiotics while you are taking anticoagulants such as Coumadin or warfarin, your INR will go up. You need to have your INR checked frequently while on the antibiotics. Have it checked in 3 days, again in 6 days, and at least weekly while you are on antibiotics. Dose adjustments of your anticoagulants may be necessary.
[2018-02-16 16:50] VITALS: BP 106/71
== END 2018-02-16 16:43 | disposition home or self-care (01) ==
LOC: ED 15:58
DX: L03.115 Cellulitis of right lower limb (principal); I10 Essential (primary) hypertension; E78.00 Pure hypercholesterolemia, unspecified; Z95.5 Presence of coronary angioplasty implant and graft; Z79.82 Long term (current) use of aspirin; Z79.01 Long term (current) use of anticoagulants
CPT/HCPCS: 99283; A9270

== ENCOUNTER 2018-02-18 13:42 | Outpatient (CLI) | payer MEDICARE, OTHER | END 2018-02-18 13:43 | disposition home or self-care (01) | LOC: LAB.F 13:42 | PROVIDERS: ATTEND Internal Medicine | DX: I26.99 Other pulmonary embolism without acute cor pulmonale (principal) | CPT/HCPCS: 85610 ==

== ENCOUNTER 2018-02-18 14:38 | Emergency (ER) | payer MEDICARE, OTHER ==
--- NOTE | 2018-02-18 15:25 | XRAY Preliminary Report ---
Exam: XR CHEST 2 VIEW X-RAY IMPRESSION: Negative for an acute cardiopulmonary abnormality. [facility] SITE ID: [id number]
--- NOTE | 2018-02-18 15:25 | XRAY Report ---
EXAM: CHEST RADIOGRAPHY EXAM DATE: 02/18/2018 03:18 PM. CLINICAL HISTORY: SOB. COMPARISON: 02/12/2018. TECHNIQUE: 2 views. FINDINGS: Lungs/Pleura: No focal opacities evident. No pleural effusion. No pneumothorax. Normal volumes. Mediastinum: There is mild atherosclerotic calcified plaque of the thoracic aorta. The heart size is normal. The trachea is midline. Other: None. IMPRESSION: Negative for an acute cardiopulmonary abnormality. [facility] Referring Provider Line: [phone] SITE ID: [id number]
[2018-02-18 15:33] LABS: BASOPHILS # (AUTO) 0.1 10^3/uL (0.0-0.1); BASOPHILS % (AUTO) 0.9 %; EOSINOPHILS # (AUTO) 0.1 10^3/uL (0.0-0.7); EOSINOPHILS % (AUTO) 1.1 %; HGB - HEMOGLOBIN 13.3 g/dL (12.0-16.0); LYMPHOCYTES # (AUTO) 2.6 10^3/uL (1.5-3.5); LYMPHOCYTES % (AUTO) 33.3 %; MEAN CORPUSCULAR HEMOGLOBIN 31.9 pg (27.0-31.0); MEAN CORPUSCULAR HGB CONC 33.3 g/dL (32.0-36.0); MEAN CORPUSCULAR VOLUME 95.9 fL (81.0-99.0); MEAN PLATELET VOLUME 8.8 fL (7.9-10.8); MONOCYTES # (AUTO) 1.1 10^3/uL (0.0-1.0); MONOCYTES % (AUTO) 14.3 %; NEUTROPHILS % (AUTO) 50.4 %; PLT - PLATELET COUNT 253 10^3/uL (130-450); RED BLOOD COUNT 4.18 10^6/uL (4.20-5.40); RED CELL DISTRIBUTION WIDTH 14.2 % (12.0-15.0); WHITE BLOOD COUNT 7.9 x10^3/uL (4.8-10.8)
[2018-02-18 15:44] LABS: ALBUMIN 3.7 g/dL (3.2-5.5); ALBUMIN/GLOBULIN RATIO 0.9 (1.0-2.2); BILIRUBIN,TOTAL 1.2 mg/dL (0.2-1.0); CREATININE 0.9 mg/dL (0.4-1.0); INR 3.9 (0.8-1.2); PT - PROTHROMBIN TIME 42.1 secs (9.9-12.6); TOTAL PROTEIN 7.6 g/dL (6.7-8.2)
--- NOTE | 2018-02-18 18:07 | ED Physician Documentation ---
History of Present Illness - Stated complaint Stated Complaint: SOA/ LIGHTHEADED/ NAUSEA - Chief complaint Chief Complaint: Resp - History obtained from History obtained from: Patient - History of Present Illness Timing: Yesterday Pain level max: 0 Pain level now: 0 - Additonal information Additional information: Patient is a 72-year-old female who presents to the emergency department stating she feels short of breath with exertion since yesterday. Feels better when she is lying down. She states that she was recently admitted to the hospital for possible sepsis, states that she received a large amount of IV fluids and that she has been urinating frequently and decrease in weight over the past few days. She tried to see her primary care provider today, who was sent to the emergency department instead. Has no chest pain. No leg pain. She is on warfarin. Review of Systems Constitutional: denies: Fever, Chills Ears: denies: Ear pain Nose: denies: Rhinorrhea / runny nose, Congestion Throat: denies: Sore throat Respiratory: denies: Cough, Hemoptysis GI: denies: Abdominal Pain, Vomiting, Diarrhea Skin: denies: Rash Musculoskeletal: denies: Neck pain, Back pain Neurologic: denies: Headache PD PAST MEDICAL HISTORY - Past Medical History Cardiovascular: Hypertension, High cholesterol, Pulmonary embolism Respiratory: Sleep apnea, CPAP use GI: Crohn's disease Psych: Anxiety - Past Surgical History Past Surgical History: Yes General: Cholecystectomy Cardiovascular: Coronary stent - Present Medications Home Medications: Ambulatory Orders Medication Instructions Recorded Confirmed Aspirin [Aspir 81] 81 mg PO DAILY 04/02/15 02/18/18 Atorvastatin Calcium [Lipitor] 80 mg PO QPM 04/02/15 02/18/18 Paroxetine HCl [Paxil] 30 mg PO DAILY 04/02/15 02/18/18 Temazepam [Restoril] 15 - 30 mg PO QPM PRN 04/02/15 02/18/18 Triamterene/Hydrochlorothiazid 1 tab PO DAILY 04/02/15 02/18/18 [Triamterene-Hctz 37.5-25 mg Cp] Furosemide 40 mg PO SUMOWEFR@0800 02/12/18 02/18/18 Melatonin 5 mg PO QPM 02/12/18 02/18/18 Metoprolol Succinate [Toprol Xl] 50 mg PO QPM 02/12/18 02/18/18 Potassium Chloride 20 meq PO DAILY 02/12/18 02/18/18 Ropinirole HCl 1 mg PO QPM 02/12/18 02/18/18 Bifidobacterium Infantis [Align] 4 mg PO DAILY 02/13/18 02/18/18 Warfarin Sodium 6 mg PO SUTUTHSA@2100 02/13/18 02/18/18 Warfarin [Coumadin] 4 mg PO MOWEFR@2100 02/13/18 02/18/18 Ciprofloxacin [Cipro] 500 mg PO BID #8 tablet 02/15/18 02/18/18 metroNIDAZOLE [Flagyl] 500 mg PO Q8H #12 tablet 02/15/18 02/18/18 Cephalexin [Keflex] 500 mg PO QID #40 capsule 02/16/18 02/18/18 - Allergies Allergies/Adverse Reactions: Allergies Allergy/AdvReac Type Severity Reaction Status Date / Time adhesive Allergy Unknown Verified 02/18/18 14:55 Sulfa (Sulfonamide Allergy Rash Verified 02/18/18 14:55 Antibiotics) tetracycline Allergy Unknown Verified 02/18/18 14:55 - Social History Does the pt smoke?: No Smoking Status: Never smoker Does the pt have substance abuse?: No - Immunizations Immunizations are current?: Yes - POLST Patient has POLST: No PD ED PE NORMAL - Vitals Vital signs reviewed: Yes - General General: Alert and oriented X 3, No acute distress, Well developed/nourished - HEENT HEENT: PERRL, Moist mucous membranes - Neck Neck: Supple, no meningeal sign - Cardiac Cardiac: RRR, Strong equal pulses - Respiratory Respiratory: No respiratory distress, Clear bilaterally - Abdomen Abdomen: Soft, Non tender, Non distended - Derm Derm: Warm and dry, No rash - Extremities Extremities: No calf tenderness / cord, Other (1+ B LE edema) - Neuro Neuro: Alert and oriented X 3 - Psych Psych: Normal mood, Normal affect Results - Vitals Vitals: Vital Signs - 24 hr 02/18/18 18:18 Heart Rate 99 Respiratory 18 Rate Blood Pressure 143/79 H O2 Saturation 99 Oxygen O2 Source Room air - EKG (time done) 1452 Rate: Rate (enter#) (79) Rhythm: NSR Achille: Normal Intervals: Normal CO QRS: Normal Ischemia: Q waves (III, aVF), Non specific changes - Labs Labs: Laboratory Tests 02/18/18 02/18/18 02/18/18 15:26 15:26 15:26 WBC 7.9 RBC 4.18 L Hgb 13.3 Hct 40.1 MCV 95.9 MCH 31.9 H MCHC 33.3 RDW 14.2 Plt Count 253 MPV 8.8 Neut # 4.0 Lymph # 2.6 Sebastian # 1.1 H Eos # 0.1 Baso # 0.1 Absolute Nucleated RBC 0.00 Nucleated RBC % 0.0 PT 42.1 H INR 3.9 H Sodium 132 L Potassium 3.9 Chloride 99 L Carbon Dioxide 22 Anion Gap 11.0 BUN 14 Creatinine 0.9 Estimated GFR (MDRD) 61 L Glucose 129 H Calcium 9.0 Total Bilirubin 1.2 H AST 98 H ALT 73 H Alkaline Phosphatase 75 Troponin I B-Natriuretic Peptide Total Protein 7.6 Albumin 3.7 Globulin 3.9 Albumin/Globulin Ratio 0.9 L Lipase 105 H 02/18/18 02/18/18 15:26 15:26 WBC RBC Hgb Hct MCV MCH MCHC RDW Plt Count MPV Neut # Lymph # Sebastian # Eos # Baso # Absolute Nucleated RBC Nucleated RBC % PT INR Sodium Potassium Chloride Carbon Dioxide Anion Gap BUN Creatinine Estimated GFR (MDRD) Glucose Calcium Total Bilirubin AST ALT Alkaline Phosphatase Troponin I < 0.04 B-Natriuretic Peptide 48 Total Protein Albumin Globulin Albumin/Globulin Ratio Lipase - Rads (name of study) cxr Radiology: Prelim report reviewed, EMP read contemporaneously, See rad report ( no acute abnormalities) RUQ US Radiology: Prelim report reviewed, EMP read contemporaneously, See rad report ( Steatosis of the liver. Status post cholecystectomy without biliary duct dilatation) PD MEDICAL DECISION MAKING - ED course Complexity details: reviewed old records, reviewed results, re-evaluated patient , considered differential, d/w patient ED course: Patient is a 72-year-old female who presents to the emergency department with dyspnea on exertion of unclear etiology. No acute findings on EKG, laboratory testing or radiograph or ultrasound to explain her symptoms. Did have a mild bump in her liver function tests, therefore a right upper quadrant ultrasound was performed without any significant abnormality. INR is supratherapeutic. She ambulates well in the emergency department without any hypoxia or tachycardia. We did discuss pulmonary embolism, but given her significant anticoagulation and current symptoms, I do not feel this is likely. We will hold a CT scan at this time and patient is comfortable with this plan. We will see how she progresses over the next 2-3 days. She states she has started to urinate a lot and return to her normal weight since leaving the hospital and receiving several liters of fluid. Possible that the dyspnea is related to the third spacing of fluids. Patient also will hold her next warfarin dose. Patient counseled regarding signs and symptoms for which I believe and urgent re -evaluation would be necessary. Patient with good understanding of and agreement to plan and is comfortable going home at this time This document was made in part using voice recognition software. While efforts are made to proofread this document, sound alike and grammatical errors may occur. Departure - Departure Disposition: 01 Home, Self Care Clinical Impression: Elevated LFTs Dyspnea Qualifiers: Dyspnea type: dyspnea on exertion Qualified Code(s): R06.09 - Other forms of dyspnea Condition: Good Instructions: ED Dyspnea Shortness of Breath Follow-Up: Kody Garcia MD [Primary Care Provider] - Within 3 Days Comments: The cause of your symptoms is unclear today, but may be related to the large amounts of fluids he received while in the hospital. If you are worsening or fail to improve over the next few days, return here for further evaluation. Otherwise follow-up closely with your doctor for further care. You should also have your liver tests rechecked in approximately 1 week with your doctor. Discharge Date/Time: 02/18/18 18:21
--- NOTE | 2018-02-18 18:17 | Ultrasound Report ---
EXAM: ABDOMEN ULTRASOUND LIMITED, RUQ EXAM DATE: 02/18/2018 06:04 PM. CLINICAL HISTORY: Elevated LFT and lipase. COMPARISON: 02/12/2018 CT. TECHNIQUE: Real-time scanning was performed with static images obtained. FINDINGS: Liver: Liver parenchyma is echogenic and heterogeneous. No focal liver lesion visualized. 18.7 cm. Ma in portal vein flow: Hepatopetal. Gallbladder: The gallbladder is absent. Biliary System: CBD measures 4.2 mm. No intrahepatic or extrahepatic ductal dilatation. Other: Right kidney measures 12.1 x 5.0 cm. No hydronephrosis. IMPRESSION: 1. Steatosis of the liver. 2. Post cholecystectomy with no biliary dilatation. [facility] Referring Provider Line: [phone] SITE ID: [id number]
--- NOTE | 2018-02-18 18:17 | Ultrasound Preliminary Report ---
Exam: US ABDOMEN LIMITED IMPRESSION: 1. Steatosis of the liver. 2. Post cholecystectomy with no biliary dilatation. [facility] SITE ID: [id number]
[2018-02-18 18:19] VITALS: BP 143/79
== END 2018-02-18 18:21 | disposition home or self-care (01) ==
LOC: ED 14:38
DX: R06.09 Other forms of dyspnea (principal); R74.8 Abnormal levels of other serum enzymes; K76.0 Fatty (change of) liver, not elsewhere classified; I10 Essential (primary) hypertension; Z86.711 Personal history of pulmonary embolism; Z79.01 Long term (current) use of anticoagulants; Z79.82 Long term (current) use of aspirin; I26.99 Other pulmonary embolism without acute cor pulmonale
CPT/HCPCS: 36415; 71046; 76705; 80053; 83690; 83880; 84484; 85025; 85610; 93005; 99283

== ENCOUNTER 2018-03-04 13:38 | Outpatient (CLI) | payer MEDICARE, OTHER | END 2018-03-04 13:39 | disposition home or self-care (01) | LOC: LAB.F 13:38 | PROVIDERS: ATTEND Internal Medicine | DX: I26.99 Other pulmonary embolism without acute cor pulmonale (principal) | CPT/HCPCS: 85610 ==

== ENCOUNTER 2018-03-19 08:00 | Outpatient (CLI) | payer MEDICARE, OTHER | END 2018-03-19 08:01 | disposition home or self-care (01) | LOC: LAB.F 08:00 | PROVIDERS: ATTEND Internal Medicine | DX: I26.99 Other pulmonary embolism without acute cor pulmonale (principal) | CPT/HCPCS: 85610 ==

== ENCOUNTER 2018-04-09 11:22 | Outpatient (CLI) | payer MEDICARE, OTHER | END 2018-04-09 11:23 | disposition home or self-care (01) | LOC: LAB.F 11:22 | PROVIDERS: ATTEND Internal Medicine | DX: I26.99 Other pulmonary embolism without acute cor pulmonale (principal) | CPT/HCPCS: 85610 ==

== ENCOUNTER 2018-05-08 14:33 | Outpatient (CLI) | payer MEDICARE, OTHER | END 2018-05-08 14:34 | disposition home or self-care (01) | LOC: LAB.F 14:33 | PROVIDERS: ATTEND Internal Medicine | DX: I26.99 Other pulmonary embolism without acute cor pulmonale (principal) | CPT/HCPCS: 85610 ==

== ENCOUNTER 2018-06-10 08:06 | Outpatient (CLI) | payer MEDICARE, OTHER | END 2018-06-10 08:07 | disposition home or self-care (01) | LOC: LAB.F 08:06 | PROVIDERS: ATTEND Internal Medicine | DX: I26.99 Other pulmonary embolism without acute cor pulmonale (principal) | CPT/HCPCS: 85610 ==

== ENCOUNTER 2018-07-09 13:43 | Outpatient (CLI) | payer MEDICARE, OTHER | END 2018-07-09 13:44 | disposition home or self-care (01) | LOC: LAB.F 13:43 | PROVIDERS: ATTEND Internal Medicine | DX: I26.99 Other pulmonary embolism without acute cor pulmonale (principal) | CPT/HCPCS: 85610 ==

== ENCOUNTER 2018-07-25 13:58 | Outpatient (CLI) | payer MEDICARE, OTHER | END 2018-07-25 13:59 | disposition home or self-care (01) | LOC: LAB.F 13:58 | PROVIDERS: ATTEND Internal Medicine | DX: I26.99 Other pulmonary embolism without acute cor pulmonale (principal) | CPT/HCPCS: 85610 ==

== ENCOUNTER 2018-08-05 13:03 | Outpatient (CLI) | payer MEDICARE, OTHER | END 2018-08-05 13:04 | disposition home or self-care (01) | LOC: LAB.F 13:03 | PROVIDERS: ATTEND Internal Medicine | DX: I26.99 Other pulmonary embolism without acute cor pulmonale (principal) | CPT/HCPCS: 85610 ==

== ENCOUNTER 2018-08-13 08:42 | Outpatient (CLI) | payer MEDICARE, OTHER ==
[2018-08-13 10:56] LABS: INR 2.3 (0.8-1.2); PT - PROTHROMBIN TIME 25.2 secs (9.9-12.6)
== END 2018-08-13 08:43 | disposition home or self-care (01) ==
LOC: LAB.F 08:42
PROVIDERS: ATTEND Internal Medicine
DX: I26.99 Other pulmonary embolism without acute cor pulmonale (principal)
CPT/HCPCS: 36415; 85610

== ENCOUNTER 2018-08-28 13:40 | Outpatient (CLI) | payer MEDICARE, OTHER | END 2018-08-28 13:41 | disposition home or self-care (01) | LOC: LAB.F 13:40 | PROVIDERS: ATTEND Internal Medicine | DX: I26.99 Other pulmonary embolism without acute cor pulmonale (principal) | CPT/HCPCS: 85610 ==

== ENCOUNTER 2018-09-18 15:02 | Outpatient (CLI) | payer MEDICARE, OTHER | END 2018-09-18 15:03 | disposition home or self-care (01) | LOC: LAB.F 15:02 | PROVIDERS: ATTEND Internal Medicine | DX: I26.99 Other pulmonary embolism without acute cor pulmonale (principal) | CPT/HCPCS: 85610 ==

== ENCOUNTER 2018-10-04 09:38 | Outpatient (CLI) | payer MEDICARE, OTHER | END 2018-10-04 09:39 | disposition home or self-care (01) | LOC: LAB.F 09:38 | PROVIDERS: ATTEND Internal Medicine | DX: I26.99 Other pulmonary embolism without acute cor pulmonale (principal) | CPT/HCPCS: 85610 ==

== ENCOUNTER 2018-10-18 14:37 | Outpatient (CLI) | payer MEDICARE, OTHER | END 2018-10-18 14:38 | disposition home or self-care (01) | LOC: LAB.F 14:37 | PROVIDERS: ATTEND Internal Medicine | DX: I26.99 Other pulmonary embolism without acute cor pulmonale (principal) | CPT/HCPCS: 85610 ==

== ENCOUNTER 2018-11-08 08:04 | Outpatient (CLI) | payer MEDICARE, OTHER | END 2018-11-08 08:05 | disposition home or self-care (01) | LOC: LAB.F 08:04 | PROVIDERS: ATTEND Internal Medicine | DX: I26.99 Other pulmonary embolism without acute cor pulmonale (principal) | CPT/HCPCS: 85610 ==

== ENCOUNTER 2018-12-06 09:48 | Outpatient (CLI) | payer MEDICARE, OTHER | END 2018-12-06 09:49 | disposition home or self-care (01) | LOC: LAB.F 09:48 | PROVIDERS: ATTEND Internal Medicine | DX: I26.99 Other pulmonary embolism without acute cor pulmonale (principal) | CPT/HCPCS: 85610 ==

== ENCOUNTER 2019-01-07 13:31 | Outpatient (CLI) | payer MEDICARE, OTHER | END 2019-01-07 13:32 | disposition home or self-care (01) | LOC: LAB.F 13:31 | PROVIDERS: ATTEND Internal Medicine | DX: I26.99 Other pulmonary embolism without acute cor pulmonale (principal) | CPT/HCPCS: 85610 ==

== ENCOUNTER 2019-01-27 13:14 | Outpatient (CLI) | payer MEDICARE, OTHER | END 2019-01-27 13:15 | disposition home or self-care (01) | LOC: LAB.F 13:14 | PROVIDERS: ATTEND Internal Medicine | DX: I26.99 Other pulmonary embolism without acute cor pulmonale (principal) | CPT/HCPCS: 85610 ==

== ENCOUNTER 2019-02-25 10:13 | Outpatient (CLI) | payer MEDICARE, OTHER | END 2019-02-25 10:14 | disposition home or self-care (01) | LOC: LAB.F 10:13 | PROVIDERS: ATTEND Internal Medicine | DX: I26.99 Other pulmonary embolism without acute cor pulmonale (principal) | CPT/HCPCS: 85610 ==

== ENCOUNTER 2019-03-25 14:23 | Outpatient (CLI) | payer MEDICARE, OTHER ==
[2019-03-25 17:57] LABS: CALCIUM 9.2 mg/dL (8.5-10.3); CREATININE 0.7 mg/dL (0.4-1.0)
== END 2019-03-25 14:24 | disposition home or self-care (01) ==
LOC: LAB.F 14:23
PROVIDERS: ATTEND Internal Medicine Cardiovascular Disease
DX: I25.119 Atherosclerotic heart disease of native coronary artery with unspecified angina pectoris (principal); I26.99 Other pulmonary embolism without acute cor pulmonale
CPT/HCPCS: 36415; 80048; 85610

== ENCOUNTER 2019-04-29 12:05 | Outpatient (CLI) | payer MEDICARE, OTHER | END 2019-04-29 12:06 | disposition home or self-care (01) | LOC: LAB.S 12:05 | PROVIDERS: ATTEND Internal Medicine | DX: I26.99 Other pulmonary embolism without acute cor pulmonale (principal) | CPT/HCPCS: 85610 ==

== ENCOUNTER 2019-05-19 11:04 | Outpatient (CLI) | payer MEDICARE, OTHER | END 2019-05-19 11:05 | disposition home or self-care (01) | LOC: LAB.S 11:04 | PROVIDERS: ATTEND Internal Medicine | DX: I26.99 Other pulmonary embolism without acute cor pulmonale (principal) | CPT/HCPCS: 85610 ==

== ENCOUNTER 2019-06-09 08:00 | Outpatient (CLI) | payer MEDICARE, OTHER | END 2019-06-09 23:59 | disposition home or self-care (01) | LOC: LAB.S 08:00 | PROVIDERS: ATTEND Internal Medicine | DX: I26.99 Other pulmonary embolism without acute cor pulmonale (principal) | CPT/HCPCS: 85610 ==

== ENCOUNTER 2019-06-30 15:23 | Outpatient (CLI) | payer MEDICARE, OTHER | END 2019-06-30 15:24 | disposition home or self-care (01) | LOC: LAB.S 15:23 | PROVIDERS: ATTEND Internal Medicine | DX: I26.99 Other pulmonary embolism without acute cor pulmonale (principal) | CPT/HCPCS: 85610 ==

== ENCOUNTER 2019-07-21 13:02 | Outpatient (CLI) | payer MEDICARE, OTHER ==
[2019-07-21 17:58] LABS: CALCIUM 8.9 mg/dL (8.5-10.3)
== END 2019-07-21 13:03 | disposition home or self-care (01) ==
LOC: LAB.S 13:02
PROVIDERS: ATTEND Internal Medicine Cardiovascular Disease
DX: I10 Essential (primary) hypertension (principal)
CPT/HCPCS: 36415; 80048

== ENCOUNTER 2019-07-30 11:06 | Outpatient (CLI) | payer MEDICARE, OTHER | END 2019-07-30 11:07 | disposition home or self-care (01) | LOC: LAB.S 11:06 | PROVIDERS: ATTEND Internal Medicine | DX: I26.99 Other pulmonary embolism without acute cor pulmonale (principal) | CPT/HCPCS: 85610 ==

== ENCOUNTER 2019-08-21 08:26 | Outpatient (CLI) | payer MEDICARE, OTHER | END 2019-08-21 08:27 | disposition home or self-care (01) | LOC: LAB.S 08:26 | PROVIDERS: ATTEND Internal Medicine | DX: I26.99 Other pulmonary embolism without acute cor pulmonale (principal) | CPT/HCPCS: 85610 ==

== ENCOUNTER 2019-09-25 07:14 | Outpatient (CLI) | payer MEDICARE, OTHER | END 2019-09-25 07:15 | disposition home or self-care (01) | LOC: LAB.S 07:14 | PROVIDERS: ATTEND Internal Medicine | DX: I26.99 Other pulmonary embolism without acute cor pulmonale (principal) | CPT/HCPCS: 85610 ==

== ENCOUNTER 2019-11-11 10:47 | Outpatient (CLI) | payer MEDICARE, OTHER | END 2019-11-11 10:48 | disposition home or self-care (01) | LOC: LAB.S 10:47 | PROVIDERS: ATTEND Internal Medicine | DX: I26.99 Other pulmonary embolism without acute cor pulmonale (principal) | CPT/HCPCS: 85610 ==

== ENCOUNTER 2019-12-09 13:56 | Outpatient (CLI) | payer MEDICARE, OTHER | END 2019-12-09 13:57 | disposition home or self-care (01) | LOC: LAB.S 13:56 | PROVIDERS: ATTEND Internal Medicine | DX: I26.99 Other pulmonary embolism without acute cor pulmonale (principal) | CPT/HCPCS: 85610 ==

== ENCOUNTER 2020-03-19 10:21 | Outpatient (CLI) | payer MEDICARE, OTHER | END 2020-03-19 10:22 | disposition home or self-care (01) | LOC: LAB.S 10:21 | PROVIDERS: ATTEND Internal Medicine | DX: I26.99 Other pulmonary embolism without acute cor pulmonale (principal) | CPT/HCPCS: 85610 ==

== ENCOUNTER 2020-05-13 09:17 | Outpatient (CLI) | payer MEDICARE, OTHER ==
[2020-05-13 09:54] LABS: CHOL/HDL RATIO 3.4 (<4.4); CHOLESTEROL 145 mg/dL; HDL CHOLESTEROL 43 mg/dL; LDL CHOLESTEROL,CALCULATED 79 mg/dL; LDL/HDL RATIO 1.8 (<4.4); VLDL CHOLESTEROL 23 mg/dL
== END 2020-05-13 09:18 | disposition home or self-care (01) ==
LOC: LAB 09:17
PROVIDERS: ATTEND Internal Medicine
DX: M06.4 Inflammatory polyarthropathy (principal); E78.5 Hyperlipidemia, unspecified
CPT/HCPCS: 36415; 80061; 83721; 85651; 86140

== ENCOUNTER 2020-06-11 14:13 | Outpatient (CLI) | payer MEDICARE, OTHER | END 2020-06-11 14:14 | disposition home or self-care (01) | LOC: LAB.S 14:13 | PROVIDERS: ATTEND Internal Medicine | DX: I26.99 Other pulmonary embolism without acute cor pulmonale (principal) | CPT/HCPCS: 85610 ==

== ENCOUNTER 2020-07-19 07:59 | Outpatient (CLI) | payer MEDICARE, OTHER | END 2020-07-19 08:00 | disposition home or self-care (01) | LOC: LAB.S 07:59 | PROVIDERS: ATTEND Internal Medicine | DX: I26.99 Other pulmonary embolism without acute cor pulmonale (principal) | CPT/HCPCS: 85610 ==

== ENCOUNTER 2020-07-26 11:10 | Outpatient (CLI) | payer MEDICARE, OTHER | END 2020-07-26 11:11 | disposition home or self-care (01) | LOC: LAB.S 11:10 | PROVIDERS: ATTEND Internal Medicine | DX: I26.99 Other pulmonary embolism without acute cor pulmonale (principal) | CPT/HCPCS: 85610 ==

== ENCOUNTER 2020-08-24 11:52 | Outpatient (CLI) | payer MEDICARE, OTHER | END 2020-08-24 11:53 | disposition home or self-care (01) | LOC: LAB.S 11:52 | PROVIDERS: ATTEND Internal Medicine | DX: I26.99 Other pulmonary embolism without acute cor pulmonale (principal) | CPT/HCPCS: 85610 ==

== ENCOUNTER 2020-09-22 10:38 | Outpatient (CLI) | payer MEDICARE, OTHER | END 2020-09-22 10:39 | disposition home or self-care (01) | LOC: LAB.S 10:38 | PROVIDERS: ATTEND Internal Medicine | DX: I26.99 Other pulmonary embolism without acute cor pulmonale (principal) | CPT/HCPCS: 85610 ==

== ENCOUNTER 2020-10-27 10:57 | Outpatient (CLI) | payer MEDICARE, OTHER | END 2020-10-27 10:58 | disposition home or self-care (01) | LOC: LAB.S 10:57 | PROVIDERS: ATTEND Internal Medicine | DX: I26.99 Other pulmonary embolism without acute cor pulmonale (principal) | CPT/HCPCS: 85610 ==

== ENCOUNTER 2020-11-19 09:32 | Outpatient (CLI) | payer MEDICARE, OTHER ==
--- NOTE | 2020-11-19 09:58 | XRAY Report ---
PROCEDURE: Abdomen 2 View X-Ray INDICATIONS: ABDOMINAL PAIN/ABDOMINAL BLOATING/LEFT BACK PAIN TECHNIQUE: 2 views of the abdomen were acquired. COMPARISON: None FINDINGS: Surgical changes and devices: Cholecystectomy clips. Bowel: No pneumoperitoneum. The bowel gas pattern is normal. Soft tissues: No masses; visualized solid organ contours appear normal in size. No suspicious abdom inal calcifications. Bones: No suspicious bony abnormalities. IMPRESSION: No acute process. Reviewed by: Ernie Majano MD on 11/19/2020 9:57 AM PST Approved by: Ernie Majano MD on 11/19/2020 9:57 AM [facility] Station ID: [id number]
== END 2020-11-19 23:59 | disposition home or self-care (01) ==
LOC: DI.S 09:32
PROVIDERS: ATTEND Physician Assistant Medical
DX: M54.9 Dorsalgia, unspecified (principal); R10.9 Unspecified abdominal pain; R14.0 Abdominal distension (gaseous)

== ENCOUNTER 2020-11-19 10:55 | Emergency (ER) | payer MEDICARE, OTHER ==
[2020-11-19 11:37] LABS: BILIRUBIN,URINE NEGATIVE (NEGATIVE); GLUCOSE, URINE (UA) NEGATIVE (NEGATIVE); KETONES,URINE (UA) NEGATIVE (NEGATIVE); LEUKOCYTE ESTERASE, URINE NEGATIVE (NEGATIVE); NITRITE,URINE NEGATIVE (NEGATIVE); OCCULT BLOOD,URINE TRACE-INTA (NEGATIVE); PROTEIN,URINE NEGATIVE (NEGATIVE); UROBILINOGEN,URINE 0.2 (NORMAL) E.U./dL (NORMAL)
[2020-11-19 11:45] LABS: BACTERIA,URINE Few /HPF (None Seen); CLARITY,URINE CLEAR (CLEAR); RBC,URINE 0-5 /HPF (0-5); SQUAMOUS EPITHELIAL CELL,UR FEW Squamous (<= Few); WBC,URINE 0-3 /HPF (0-5)
--- NOTE | 2020-11-19 12:08 | ED Physician Documentation ---
PD HPI ABD PAIN - Stated complaint Stated Complaint: FEMALE - Chief complaint Chief Complaint: Abd Pain - History obtained from History obtained from: Patient - History of Present Illness Timing - onset: How many days ago (3) Timing - duration: Days (3) Timing - details: Gradual onset, Still present Quality: Sharp, Pain Location: LLQ, Other (left back radiating to the front) Improved by: Laying still Worsened by: Moving, Position, Palpation Associated symptoms: Nausea, Constipation. No: Vomiting Similar symptoms before: Diagnosis (constipation) Recently seen: Clinic - Additional information Additional information: 75-year-old female reports that she has not had a bowel movement in 10 days and she has begun to get some nausea. She has not had vomiting with this she has tried a number of different laxatives and took a bottle magnesium citrate she has not had any relief with this. She does have a history of usually having a bowel movement every 3 days. She has developed some pain associated with this in her left back she went in to see her doctor in the clinic they attempted to do a manual disimpaction and found no stool in vault. They did do a plain film of her abdomen which did show a significant stool load. They have sent the patient to the emergency department for further work on her constipation. Review of Systems Constitutional: denies: Fever Ears: denies: Ear pain Nose: denies: Congestion Throat: denies: Sore throat Cardiac: denies: Palpitations Respiratory: denies: Dyspnea, Cough GI: reports: Abdominal Pain, Nausea, Constipation. denies: Vomiting : denies: Dysuria, Frequency Skin: denies: Rash Musculoskeletal: reports: Back pain. denies: Neck pain Neurologic: denies: Generalized weakness, Focal weakness, Numbness PD PAST MEDICAL HISTORY - Past Medical History Cardiovascular: Hypertension, High cholesterol, Pulmonary embolism Respiratory: Sleep apnea, CPAP use GI: Crohn's disease Psych: Anxiety - Past Surgical History Past Surgical History: Yes General: Cholecystectomy Cardiovascular: Coronary stent - Present Medications Home Medications: Ambulatory Orders Medication Instructions Recorded Confirmed Aspirin [Aspir 81] 81 mg PO DAILY 04/02/15 02/18/18 Atorvastatin Calcium [Lipitor] 80 mg PO QPM 04/02/15 02/18/18 PARoxetine HCl [Paxil] 30 mg PO DAILY 04/02/15 02/18/18 Temazepam [Restoril] 15 - 30 mg PO QPM PRN 04/02/15 02/18/18 Triamterene/Hydrochlorothiazid 1 tab PO DAILY 04/02/15 02/18/18 [Triamterene-Hctz 37.5-25 mg Cp] Furosemide 40 mg PO SUMOWEFR@0800 02/12/18 02/18/18 Melatonin 5 mg PO QPM 02/12/18 02/18/18 Metoprolol Succinate [Toprol Xl] 50 mg PO QPM 02/12/18 02/18/18 Potassium Chloride 20 meq PO DAILY 02/12/18 02/18/18 Ropinirole HCl 1 mg PO QPM 02/12/18 02/18/18 Bifidobacterium Infantis [Align] 4 mg PO DAILY 02/13/18 02/18/18 Warfarin Sodium 6 mg PO SUTUTHSA@2100 02/13/18 02/18/18 Warfarin [Coumadin] 4 mg PO MOWEFR@2100 02/13/18 02/18/18 Ciprofloxacin [Cipro] 500 mg PO BID #8 tablet 02/15/18 02/18/18 metroNIDAZOLE [Flagyl] 500 mg PO Q8H #12 tablet 02/15/18 02/18/18 cephALEXin [Keflex] 500 mg PO QID #40 capsule 02/16/18 02/18/18 - Allergies Allergies/Adverse Reactions: Allergies Allergy/AdvReac Type Severity Reaction Status Date / Time adhesive Allergy Unknown Verified 11/19/20 10:58 Sulfa (Sulfonamide Allergy Rash Verified 11/19/20 10:58 Antibiotics) tetracycline Allergy Unknown Verified 11/19/20 10:58 - Social History Does the pt smoke?: No Smoking Status: Never smoker Does the pt have substance abuse?: No - Immunizations Immunizations are current?: Yes - POLST Patient has POLST: No PD ED PE NORMAL - Vitals Vital signs reviewed: Yes (hypertensive) - General General: Alert and oriented X 3, No acute distress, Well developed/nourished - HEENT HEENT: Atraumatic, PERRL, EOMI - Neck Neck: Supple, no meningeal sign, No bony TTP - Cardiac Cardiac: RRR, No murmur - Respiratory Respiratory: No respiratory distress, Clear bilaterally - Abdomen Abdomen: Normal bowel sounds, Soft, Non distended, No organomegaly, Other (obese mild tenderness ) - Back Back: No CVA TTP, No spinal TTP - Derm Derm: Normal color, Warm and dry, No rash - Extremities Extremities: No deformity, No edema - Neuro Neuro: Alert and oriented X 3, 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, No motor deficit, No sensory deficit, Normal speech Eye Opening: Spontaneous Motor: Obeys Commands Verbal: Oriented GCS Score: 15 - Psych Psych: Normal mood, Normal affect Results - Vitals Vitals: Vital Signs - 24 hr 11/19/20 11/19/20 10:58 13:12 Temperature 37.2 C 37.3 C Heart Rate 68 62 Respiratory 19 16 Rate Blood Pressure 172/100 H 160/56 H O2 Saturation 96 98 Oxygen O2 Source Room air - Labs Labs: Laboratory Tests 11/19/20 11:29 Urine Color YELLOW Urine Clarity CLEAR Urine pH 8.0 H Ur Specific [place] 1.015 Urine Protein NEGATIVE Urine Glucose (UA) NEGATIVE Urine Ketones NEGATIVE Urine Occult Blood TRACE-INTA Urine Nitrite NEGATIVE Urine Bilirubin NEGATIVE Urine Urobilinogen 0.2 (NORMAL) Ur Leukocyte Esterase NEGATIVE Urine RBC 0-5 Urine WBC 0-3 Ur Squamous Epith Cells FEW Squamous Urine Bacteria Few PD MEDICAL DECISION MAKING - ED course Complexity details: reviewed old records, reviewed results, re-evaluated patient, considered differential, d/w patient ED course: 75-year-old female with a history of chronic constipation has been constipated for 10 days and has been sent to the emergency department unable to find stool to dislodge and disimpact. After discussing with the patient the maneuvers she has done for constipation and the length of time it has been for a stool, we elected to go further with treatment of constipation without further diagnostic evaluation. We were able to administer an oil retention enema and the patient was able to have a satisfying bowel movement. Departure - Departure Disposition: 01 Home, Self Care Clinical Impression: Constipation Qualifiers: Constipation type: unspecified constipation type Qualified Code(s): K59.00 - Constipation, unspecified Condition: Stable Instructions: ED Constipation Follow-Up: Kody Garcia MD [Primary Care Provider] - Discharge Date/Time: 11/19/20 13:38
[2020-11-19 13:13] VITALS: BP 160/56
== END 2020-11-19 13:38 | disposition home or self-care (01) ==
LOC: EDBD → ED 10:55
DX: K59.00 Constipation, unspecified (principal); I10 Essential (primary) hypertension; Z87.19 Personal history of other diseases of the digestive system; Z86.711 Personal history of pulmonary embolism; Z79.01 Long term (current) use of anticoagulants; Z79.82 Long term (current) use of aspirin; M54.9 Dorsalgia, unspecified; R10.9 Unspecified abdominal pain; R14.0 Abdominal distension (gaseous)
CPT/HCPCS: 81001; 99283; 99284

== ENCOUNTER 2020-12-09 08:45 | Outpatient (CLI) | payer MEDICARE, OTHER | END 2020-12-09 08:46 | disposition home or self-care (01) | LOC: LAB.S 08:45 | PROVIDERS: ATTEND Internal Medicine | DX: I26.99 Other pulmonary embolism without acute cor pulmonale (principal) | CPT/HCPCS: 85610 ==

== ENCOUNTER 2021-01-03 13:00 | Outpatient (CLI) | payer MEDICARE, OTHER | END 2021-01-03 13:01 | disposition home or self-care (01) | LOC: LAB.S 13:00 | PROVIDERS: ATTEND Internal Medicine | DX: I26.99 Other pulmonary embolism without acute cor pulmonale (principal) | CPT/HCPCS: 85610 ==

== ENCOUNTER 2021-02-15 13:37 | Outpatient (CLI) | payer MEDICARE, OTHER | END 2021-02-15 13:38 | disposition home or self-care (01) | LOC: LAB.S 13:37 | PROVIDERS: ATTEND Internal Medicine | DX: I26.99 Other pulmonary embolism without acute cor pulmonale (principal) | CPT/HCPCS: 36416; 85610 ==

== ENCOUNTER 2021-03-29 15:17 | Outpatient (CLI) | payer MEDICARE, OTHER | END 2021-03-29 15:18 | disposition home or self-care (01) | LOC: LAB.S 15:17 | PROVIDERS: ATTEND Internal Medicine | DX: I26.99 Other pulmonary embolism without acute cor pulmonale (principal) | CPT/HCPCS: 36416; 85610 ==

== ENCOUNTER 2021-05-05 10:09 | Outpatient (CLI) | payer MEDICARE, OTHER | END 2021-05-05 10:10 | disposition home or self-care (01) | LOC: LAB.S 10:09 | PROVIDERS: ATTEND Internal Medicine | DX: I26.99 Other pulmonary embolism without acute cor pulmonale (principal) | CPT/HCPCS: 36416; 85610 ==